=== PATIENT | female | born 1955 | race Caucasian/White ===

== ENCOUNTER 2016-09-21 17:41 | Inpatient (IN) | payer MEDICAID ==
[~2016-09-21] VITALS: Ht 165.1 cm; Wt 74.6 kg
[~2016-09-21 17:41] MED LIST: ALL300T PO; BISACODYL PO; BUME1TAB PO; CLON0.2T PO; COZAR PO; CYAN100023 PO; DIAZ10GE; DIG025T PO; DIVA250T51 PO; ESCI10TA PO; FLUV80TA PO; FOLI1TAB6 PO; GEMF600T3 PO; LEVE750T3; LEVO50CA PO; MIDO2.5T; OMEP20CA5 PO; ONDA8TAB9 PO; OXCA300T26; RIVAROXABAN PO; ROPI1TAB22 PO; SOTA80TA20 PO; SUMA50TA2 PO; TOPI100T68; ZONI100C43
[2016-09-21 19:58] LABS: Basophils # (auto) 0 uL; Basophils % (auto) 0.4 % (0.0-2.0); DEFINITIVE VIEW TRANSMISSION; Eosinophils # (auto) 0.2 uL; Eosinophils % (auto) 1.7 % (0.0-7.0); Hematocrit 36.6 % (36.0-46.0); Hemoglobin 11.9 g/dL (12.2-16.2); Lymphocytes # (auto) 2.7 uL; Mean Corpuscular Hemoglobin 24.4 pg (28.0-32.0); Mean Corpuscular Hgb Conc. 32.5 g/dL (32.0-36.0); Mean Platelet Volume 9.5 fL (7.4-10.4); Monocytes # (auto) 0.9 uL; Neutrophils # (auto) 5.8 uL; Neutrophils % (auto) 60.9 % (37.0-80.0); Platelet Count (auto) 241 10^3/uL (140-450); Red Cell Distribution Width 19.3 % (11.6-16.0); White Blood Cell 9.5 10^3/uL (4.4-10.8)
[2016-09-21 20:10] LABS: Anisocytosis Slight; Hypochromia Moderate; Ovalocytes FEW; Platelet Estimate Adequate
[2016-09-21 20:12] LABS: Albumin 3.5 g/dL (3.4-5.0); Anion Gap 13 (5-15); Blood Urea Nitrogen 22 mg/dL (7-18); Calcium 7.8 mg/dL (8.5-10.1); Carbon Dioxide 15 mmol/L (21-32); Chloride 116 mmol/L (98-107); Glucose 97 mg/dL (74-106); Magnesium 2.2 mg/dL (1.6-2.6); Sodium 144 mmol/L (136-145)
[2016-09-21 20:14] LABS: Aspartate Aminotransferase 5 U/L (15-37); BUN/Creatinine Ratio 20.4; GFR African American 67 mL/min; GFR Non-African American 55 mL/min
[2016-09-21 20:19] LABS: Alkaline Phosphatase 96 U/L (45-117); Bilirubin, Total 0.2 mg/dL (0.2-1.0)
[2016-09-21 20:24] LABS: Potassium 2.4 mmol/L (3.5-5.1)
[2016-09-21 23:39] LABS: INR 1.08 (0.9-1.15); Prothrombin Time 11.1 sec (9.37-12.3)
[2016-09-21] MEDS ORDERED: SODIUM CHLORIDE 0.9% 1,000 ML IV ONE (23:45)
[2016-09-21] MEDS ORDERED: HYDROmorphone HCL 2 MG/ML VL IV ONE (23:45)
[2016-09-21] MEDS ORDERED: ONDANSETRON HCL 4 MG/2 ML VIAL IV ONE (23:45)
[2016-09-22] MEDS ORDERED: POTASSIUM CHL 20MEQ/100ML 100 ML IV ONE (00:15)
[2016-09-22 00:44] LABS: Urine Bilirubin Negative (Negative); Urine Blood Negative /uL (Negative); Urine Color Yellow (Yellow); Urine Glucose Normal (Normal); Urine Hyaline Cast FEW /lpf (0 - 2); Urine Ketone Negative (Negative); Urine Nitrite Negative (Negative); Urine RBC 8 /hpf (0 - 4); Urine Squamous Epithelial Cell FEW /hpf (<5); Urine Urobilinogen Normal (Negative); Urine pH 6.5 (5.0-8.0)
[2016-09-22] MEDS ORDERED: HYDROmorphone HCL 2 MG/ML VL IV ONE (05:00)
[2016-09-22] MEDS ORDERED: TEMAZEPAM 15 MG CAP PO PRN (07:30)
[2016-09-22] MEDS ORDERED: HYDROcodone-ACET 5/325MG TAB PO PRN (07:30)
[2016-09-22] MEDS ORDERED: MORPHINE SULF INJ 2 MG/ML SYRINGE 1ML IV PRN (07:30)
[2016-09-22] MEDS ORDERED: ACETAMINOPHEN 500 MG TAB PO PRN (07:30)
[2016-09-22] MEDS ORDERED: NITROGLYCERIN 0.4 MG SL TAB SL PRN (07:30)
[2016-09-22] MEDS ORDERED: LORazepam 0.5 MG TAB PO PRN (07:30)
[2016-09-22] MEDS ORDERED: FLUVASTATIN SODIUM 80 MG PO SCH (07:45)
[2016-09-22] MEDS ORDERED: LOSARTAN 50 MG PO SCH (07:45)
[2016-09-22] MEDS ORDERED: LEVOTHYROXINE SODIUM 50 MCG PO SCH (07:45)
[2016-09-22] MEDS ORDERED: PATIENTS OWN MEDICATION (Folic Acid 1 MG) PO SCH ×2 (07:45)
[2016-09-22] MEDS ORDERED: DIAZEPAM 5 MG TAB PO PRN (07:45)
[2016-09-22] MEDS: SOD CHL 0.9%/ KCL 40MEQ 1,000 ML IV SCH ×2 (07:48→18:05)
[2016-09-22] MEDS: metroNIDAZOLE 500MG/100ML 100 ML IV SCH ×3 (07:48→20:25)
[2016-09-22 08:24] VITALS: BP 110/75
[2016-09-22 09:00] VITALS: BP 110/75
[2016-09-22] MEDS: MORPHINE SULF INJ 2 MG/ML SYRINGE 1ML IV PRN ×3 (09:11→20:39)
[2016-09-22] MEDS: PROMETHAZINE HCL 25 MG/ML 1ML IV PRN ×2 (09:11→13:14)
[2016-09-22] MEDS ORDERED: CYANOCOBALAMIN PO SCH (10:00)
[2016-09-22] MEDS ORDERED: PATIENTS OWN MEDICATION (Escitalopram Oxalate (Lexapro) 10 MG) PO SCH (10:00)
[2016-09-22] MEDS: ZONISAMIDE 100MG CAPSULE PO SCH ×2 (10:00→22:00)
[2016-09-22] MEDS ORDERED: CLONIDINE HYDROCHLORIDE 0.2 MG PO SCH (10:00)
[2016-09-22] MEDS ORDERED: RIVAROXABAN 20 MG PO SCH (10:00)
[2016-09-22] MEDS: ALLOPURINOL 300 MG TAB PO SCH (10:49)
[2016-09-22] MEDS: LEVOTHYROXINE SODIUM 50 MCG TAB PO SCH (10:49)
[2016-09-22] MEDS: GEMFIBROZIL 600 MG TAB PO SCH ×2 (10:50→22:10)
[2016-09-22] MEDS: CYANOCOBALAMIN 500 MCG TAB PO SCH (10:50)
[2016-09-22] MEDS: LEVETIRACETAM 500 MG TAB PO SCH ×2 (10:52→22:09)
[2016-09-22] MEDS: CITALOPRAM HYDROBR 20 MG TAB PO SCH (10:52)
[2016-09-22] MEDS: FAMOTIDINE 20 MG TAB PO SCH ×2 (10:52→22:10)
[2016-09-22] MEDS: FOLIC ACID 1 MG TAB PO SCH (10:53)
[2016-09-22] MEDS: TOPIRAMATE 100 MG TAB PO SCH ×2 (10:53→22:11)
[2016-09-22] MEDS: OXcarbazepine 300 MG TAB PO SCH ×2 (10:54→22:11)
[2016-09-22] MEDS: SOTALOL HCL 80 MG TAB PO SCH ×2 (10:56→22:00)
[2016-09-22] MEDS: DIGOXIN 0.125 MG TAB PO SCH (10:57)
[2016-09-22] MEDS: LOSARTAN POTASSIUM 50 MG TAB PO SCH (10:58)
[2016-09-22] MEDS: cloNIDine HCL 0.1 MG TAB PO SCH ×2 (11:30→22:00)
[2016-09-22 13:00] VITALS: BP 90/47
[2016-09-22] MEDS: MIDODRINE HCL 10 MG TAB PO SCH ×2 (13:20→22:11)
[2016-09-22] MEDS: ROPINIROLE 1 MG PO SCH ×2 (13:22→22:00)
[2016-09-22 17:00] VITALS: BP 100/59
[2016-09-22] MEDS: RIVAROXABAN 20 MG TAB PO SCH (18:02)
[2016-09-22 20:00] VITALS: BP 102/52
[2016-09-22 21:52] VITALS: BP 102/53
[2016-09-22] MEDS: MORPHINE SULF 30 mg ER tab PO SCH (22:10)
[2016-09-22] MEDS: PRAVASTATIN SODIUM 20 MG TAB PO SCH (22:11)
[2016-09-23] VITALS (7 sets, daily range): BP systolic 97–128; BP diastolic 50–73
[2016-09-23] MEDS: metroNIDAZOLE 500MG/100ML 100 ML IV SCH ×4 (01:29→22:05)
[2016-09-23] MEDS: SOD CHL 0.9%/ KCL 40MEQ 1,000 ML IV SCH ×2 (04:34→13:30)
[2016-09-23] MEDS: MIDODRINE HCL 10 MG TAB PO SCH ×3 (05:07→22:00)
[2016-09-23] MEDS: MORPHINE SULF INJ 2 MG/ML SYRINGE 1ML IV PRN ×3 (05:08→22:12)
[2016-09-23] MEDS: ROPINIROLE 1 MG PO SCH ×3 (05:15→22:00)
[2016-09-23 07:50] LABS: Albumin 3.2 g/dL (3.4-5.0); Potassium 3.1 mmol/L (3.5-5.1)
[2016-09-23 07:52] LABS: BUN/Creatinine Ratio 17.4; Calcium 7.9 mg/dL (8.5-10.1)
[2016-09-23 07:55] LABS: Bilirubin, Total 0.3 mg/dL (0.2-1.0); Total Protein 6.3 g/dL (6.4-8.2)
[2016-09-23] MEDS: PROMETHAZINE HCL 25 MG/ML 1ML IV PRN (09:48)
[2016-09-23] MEDS: CYANOCOBALAMIN 500 MCG TAB PO SCH (09:48)
[2016-09-23] MEDS: GEMFIBROZIL 600 MG TAB PO SCH ×2 (09:49→22:17)
[2016-09-23] MEDS: LEVETIRACETAM 500 MG TAB PO SCH ×2 (09:49→22:16)
[2016-09-23] MEDS: ALLOPURINOL 300 MG TAB PO SCH (09:49)
[2016-09-23] MEDS: DIGOXIN 0.125 MG TAB PO SCH (09:50)
[2016-09-23] MEDS: cloNIDine HCL 0.1 MG TAB PO SCH ×2 (09:50→22:00)
[2016-09-23] MEDS: LEVOTHYROXINE SODIUM 50 MCG TAB PO SCH (09:54)
[2016-09-23] MEDS: CITALOPRAM HYDROBR 20 MG TAB PO SCH (09:54)
[2016-09-23] MEDS: FOLIC ACID 1 MG TAB PO SCH (09:54)
[2016-09-23] MEDS: SOTALOL HCL 80 MG TAB PO SCH ×2 (09:55→22:18)
[2016-09-23] MEDS: FAMOTIDINE 20 MG TAB PO SCH ×2 (09:55→22:16)
[2016-09-23] MEDS: OXcarbazepine 300 MG TAB PO SCH ×2 (09:55→22:16)
[2016-09-23] MEDS: LOSARTAN POTASSIUM 50 MG TAB PO SCH (09:55)
[2016-09-23] MEDS: TOPIRAMATE 100 MG TAB PO SCH ×2 (09:55→22:17)
[2016-09-23] MEDS: MORPHINE SULF 30 mg ER tab PO SCH ×2 (09:57→22:00)
[2016-09-23] MEDS: ZONISAMIDE 100MG CAPSULE PO SCH ×2 (09:57→22:00)
[2016-09-23] MEDS ORDERED: POTASSIUM CHL 20 Meq TABLET PO ONE (11:15)
[2016-09-23] MEDS: RIVAROXABAN 20 MG TAB PO SCH (17:39)
[2016-09-23] MEDS: PRAVASTATIN SODIUM 20 MG TAB PO SCH (22:00)
[2016-09-24] MEDS: metroNIDAZOLE 500MG/100ML 100 ML IV SCH ×3 (03:03→14:17)
[2016-09-24] MEDS: MORPHINE SULF INJ 2 MG/ML SYRINGE 1ML IV PRN ×3 (03:11→14:17)
[2016-09-24 05:33] VITALS: BP 104/53
[2016-09-24] MEDS: ROPINIROLE 1 MG PO SCH ×2 (06:00→14:00)
[2016-09-24 06:25] LABS: Basophils # (auto) 0 uL; Basophils % (auto) 0.5 % (0.0-2.0); DEFINITIVE VIEW TRANSMISSION; Eosinophils # (auto) 0.3 uL; Eosinophils % (auto) 5.1 % (0.0-7.0); Hematocrit 32.4 % (36.0-46.0); Hemoglobin 10.3 g/dL (12.2-16.2); Lymphocytes # (auto) 1.4 uL; Lymphocytes % (auto) 22.5 % (10.0-50.0); Mean Corpuscular Hgb Conc. 31.9 g/dL (32.0-36.0); Mean Corpuscular Volume 75.5 fL (80.0-100.0); Mean Platelet Volume 9.6 fL (7.4-10.4); Monocytes # (auto) 0.6 uL; Monocytes % (auto) 9.3 % (0.0-12.0); Neutrophils # (auto) 3.8 uL; Neutrophils % (auto) 62.6 % (37.0-80.0); Platelet Count (auto) 180 10^3/uL (140-450); Red Cell Distribution Width 19.2 % (11.6-16.0)
[2016-09-24] MEDS: SOD CHL 0.9%/ KCL 40MEQ 1,000 ML IV SCH ×2 (06:36→09:30)
[2016-09-24] MEDS: MIDODRINE HCL 10 MG TAB PO SCH ×2 (06:38→14:17)
[2016-09-24 07:04] LABS: Anisocytosis Slight; Microcytosis Slight; Ovalocytes FEW; Platelet Estimate Adequate
[2016-09-24 07:12] LABS: BUN/Creatinine Ratio 13.8; Calcium 7.9 mg/dL (8.5-10.1); Magnesium 2.1 mg/dL (1.6-2.6); Potassium 3.3 mmol/L (3.5-5.1)
[2016-09-24 08:00] VITALS: BP 163/75
[2016-09-24 09:44] VITALS: BP 163/75
[2016-09-24] MEDS: LEVOTHYROXINE SODIUM 50 MCG TAB PO SCH (09:53)
[2016-09-24] MEDS: OXcarbazepine 300 MG TAB PO SCH (09:53)
[2016-09-24] MEDS: LEVETIRACETAM 500 MG TAB PO SCH (09:53)
[2016-09-24] MEDS: TOPIRAMATE 100 MG TAB PO SCH (09:53)
[2016-09-24] MEDS: FOLIC ACID 1 MG TAB PO SCH (09:54)
[2016-09-24] MEDS: GEMFIBROZIL 600 MG TAB PO SCH (09:54)
[2016-09-24] MEDS: FAMOTIDINE 20 MG TAB PO SCH (09:54)
[2016-09-24] MEDS: CITALOPRAM HYDROBR 20 MG TAB PO SCH (09:54)
[2016-09-24] MEDS: CYANOCOBALAMIN 500 MCG TAB PO SCH (09:54)
[2016-09-24] MEDS: SOTALOL HCL 80 MG TAB PO SCH (09:55)
[2016-09-24] MEDS: ALLOPURINOL 300 MG TAB PO SCH (09:55)
[2016-09-24] MEDS: LOSARTAN POTASSIUM 50 MG TAB PO SCH (09:55)
[2016-09-24] MEDS: MORPHINE SULF 30 mg ER tab PO SCH (09:56)
[2016-09-24] MEDS: ZONISAMIDE 100MG CAPSULE PO SCH (09:56)
[2016-09-24] MEDS: DIGOXIN 0.125 MG TAB PO SCH (09:56)
[2016-09-24] MEDS: cloNIDine HCL 0.1 MG TAB PO SCH (10:00)
[2016-09-24 12:53] VITALS: BP 98/59
[2016-09-24 16:45] VITALS: BP 137/66
[2016-09-24 17:15] VITALS: BP 106/56
[2016-09-24] MEDS: RIVAROXABAN 20 MG TAB PO SCH (18:00)
== END 2016-09-24 18:35 | disposition home health service (06) | DRG 248 ==
LOC: ER 17:44 → TELE-E-ADS 17:45 → TELE-EAST 09-22 08:18
PROVIDERS: ADMIT Internal Medicine; ATTEND Internal Medicine
DX: A04.7 Enterocolitis due to Clostridium difficile (principal); K85.90 Acute pancreatitis without necrosis or infection, unspecified; K91.2 Postsurgical malabsorption, not elsewhere classified; F11.20 Opioid dependence, uncomplicated; N39.0 Urinary tract infection, site not specified; I13.10 Hypertensive heart and chronic kidney disease without heart failure, with stage 1 through stage 4 chronic kidney disease, or unspecified chronic kidney disease; F13.20 Sedative, hypnotic or anxiolytic dependence, uncomplicated; N20.0 Calculus of kidney; I48.91 Unspecified atrial fibrillation; E86.0 Dehydration; G40.909 Epilepsy, unspecified, not intractable, without status epilepticus; F32.9 Major depressive disorder, single episode, unspecified; E03.9 Hypothyroidism, unspecified; E78.5 Hyperlipidemia, unspecified; E87.6 Hypokalemia; F41.9 Anxiety disorder, unspecified; Z96.89 Presence of other specified functional implants; G89.4 Chronic pain syndrome; N18.9 Chronic kidney disease, unspecified; F19.20 Other psychoactive substance dependence, uncomplicated; M10.9 Gout, unspecified; Z98.84 Bariatric surgery status; Z90.49 Acquired absence of other specified parts of digestive tract; Z98.890 Other specified postprocedural states; Z82.5 Family history of asthma and other chronic lower respiratory diseases; Z82.0 Family history of epilepsy and other diseases of the nervous system; Z82.3 Family history of stroke; Z80.9 Family history of malignant neoplasm, unspecified; Z88.1 Allergy status to other antibiotic agents; Z88.8 Allergy status to other drugs, medicaments and biological substances; Z86.73 Personal history of transient ischemic attack (TIA), and cerebral infarction without residual deficits; Z86.010 Personal history of colon polyps; Z86.2 Personal history of diseases of the blood and blood-forming organs and certain disorders involving the immune mechanism
CPT/HCPCS: 36415; 71010; 74176; 80048; 80053; 81001; 82150; 82270; 82378; 83690; 83735; 84484; 85025; 85610; 86141; 87045; 87081; 87493; 87899; 93005; 96361; 96365; 96374; 96375; 96376; J2405; J3480; J3490

== ENCOUNTER 2016-09-29 16:02 | Inpatient (IN) | payer MEDICAID ==
[~2016-09-29] VITALS: Ht 165.1 cm; Wt 69.8 kg
[2016-09-29 17:08] LABS: Basophils # (auto) 0 uL; Basophils % (auto) 0.6 % (0.0-2.0); DEFINITIVE VIEW TRANSMISSION; Eosinophils # (auto) 0.1 uL; Eosinophils % (auto) 2.1 % (0.0-7.0); Hematocrit 36.2 % (36.0-46.0); Hemoglobin 11.7 g/dL (12.2-16.2); Lymphocytes # (auto) 2.2 uL; Lymphocytes % (auto) 33.8 % (10.0-50.0); Mean Corpuscular Hemoglobin 24.9 pg (28.0-32.0); Mean Corpuscular Hgb Conc. 32.3 g/dL (32.0-36.0); Mean Corpuscular Volume 76.9 fL (80.0-100.0); Mean Platelet Volume 8.5 fL (7.4-10.4); Monocytes # (auto) 0.8 uL; Monocytes % (auto) 12.4 % (0.0-12.0); Neutrophils # (auto) 3.3 uL; Neutrophils % (auto) 51.1 % (37.0-80.0); Platelet Count (auto) 215 10^3/uL (140-450); White Blood Cell 6.4 10^3/uL (4.4-10.8)
[2016-09-29 17:09] LABS: Red Cell Distribution Width 20.6 % (11.6-16.0)
[2016-09-29 17:26] LABS: Platelet Estimate Adequate
[2016-09-29 17:30] LABS: Ovalocytes FEW
[2016-09-29 17:31] LABS: Anisocytosis Slight; Hypochromia Slight
[2016-09-29 17:32] LABS: Albumin 3.3 g/dL (3.4-5.0); BUN/Creatinine Ratio 13.2; Bilirubin, Total 0.3 mg/dL (0.2-1.0); Calcium 7.9 mg/dL (8.5-10.1); Total Protein 6.4 g/dL (6.4-8.2)
[2016-09-29 17:44] LABS: Potassium 2.5 mmol/L (3.5-5.1)
[2016-09-29] MEDS ORDERED: SODIUM CHLORIDE 0.9% 1,000 ML IVB ONE (17:44)
[2016-09-29 18:10] LABS: Urine Bilirubin Negative (Negative); Urine Color Yellow (Yellow); Urine Glucose Normal (Normal); Urine Ketone Negative (Negative); Urine Nitrite Negative (Negative); Urine RBC 3 /hpf (0 - 4); Urine Squamous Epithelial Cell FEW /hpf (<5); Urine Urobilinogen Normal (Negative)
[2016-09-29 18:18] LABS: Urine Blood 2+ /uL (Negative)
[2016-09-29 18:26] LABS: Magnesium 1.8 mg/dL (1.6-2.6)
[2016-09-29] MEDS ORDERED: ONDANSETRON HCL 4 MG/2 ML VIAL IV ONE (18:30)
[2016-09-29] MEDS ORDERED: LEVOFLOXACIN 500MG 100 ML IV ONE (18:45)
[2016-09-29] MEDS ORDERED: ACETAMINOPHEN 500 MG TAB PO PRN (18:45)
[2016-09-29] MEDS ORDERED: NITROGLYCERIN 0.4 MG SL TAB SL PRN (18:45)
[2016-09-29] MEDS ORDERED: POTASSIUM CHL 20 Meq TABLET PO ONE (18:45)
[2016-09-29] MEDS ORDERED: LORazepam 0.5 MG TAB PO PRN (18:45)
[2016-09-29] MEDS ORDERED: HYDROcodone-ACET 5/325MG TAB PO PRN (18:45)
[2016-09-29] MEDS ORDERED: metroNIDAZOLE 500MG/100ML 100 ML IV ONE (18:45)
[2016-09-29] MEDS: SOD CHL 0.9%/ KCL 40MEQ 1,000 ML IV SCH (18:45)
[2016-09-29] MEDS ORDERED: MORPHINE SULF INJ 2 MG/ML SYRINGE 1ML IV PRN (18:45)
[2016-09-29] MEDS ORDERED: TEMAZEPAM 15 MG CAP PO PRN (18:45)
[2016-09-29 18:46] LABS: INR 1.14 (0.9-1.15); Partial Thromboplastin Time 25.8 sec (22.64-33.71); Prothrombin Time 11.7 sec (9.37-12.3)
[2016-09-29] MEDS: ENOXAPARIN SOD 40 MG/0.4 ML SYRINGE SC SCH (20:16)
[2016-09-29] MEDS ORDERED: RIVAROXABAN 20 MG TAB PO ONE (20:30)
[2016-09-29] MEDS ORDERED: OXYCODONE W/ ACETAMINOPHEN 5/325MG TABLET PO PRN (20:30)
[2016-09-29] MEDS: POTASSIUM CHL 20MEQ/100ML 100 ML IV SCH (20:39)
[2016-09-29] MEDS: MORPHINE SULF INJ 2 MG/ML SYRINGE 1ML IV PRN (20:42)
[2016-09-29] MEDS: PROMETHAZINE HCL 25 MG/ML 1ML IV PRN (20:42)
[2016-09-29 21:20] VITALS: BP 119/73
[2016-09-29 21:52] VITALS: BP 119/73
[2016-09-29] MEDS ORDERED: metroNIDAZOLE 500 MG TAB PO SCH (22:00)
[2016-09-29] MEDS: ZONISAMIDE 100MG CAPSULE PO SCH (22:00)
[2016-09-29] MEDS: SOTALOL HCL 80 MG TAB PO SCH (22:00)
[2016-09-29] MEDS: ROPINIROLE HYDROCHLORIDE 1 MG PO SCH (22:00)
[2016-09-29] MEDS ORDERED: SUMAtriptan SUCCINATE 25 MG TAB PO PRN (22:00)
[2016-09-29] MEDS: FAMOTIDINE 20 MG TAB PO SCH (23:15)
[2016-09-29] MEDS: OXcarbazepine 300 MG TAB PO SCH (23:16)
[2016-09-29] MEDS: LEVETIRACETAM 500 MG TAB PO SCH (23:16)
[2016-09-29] MEDS: NITROFURANTOIN (MONO) 100 mg CAP PO SCH (23:18)
[2016-09-29] MEDS: PRAVASTATIN SODIUM 20 MG TAB PO SCH (23:19)
[2016-09-29] MEDS: MORPHINE SULF 30 mg ER tab PO SCH (23:19)
[2016-09-29] MEDS: GEMFIBROZIL 600 MG TAB PO SCH (23:20)
[2016-09-30] MEDS: TOPIRAMATE 100 MG TAB PO SCH ×3 (00:02→22:00)
[2016-09-30] MEDS: metroNIDAZOLE 500MG/100ML 100 ML IV ONE ×2 (00:15→00:33)
[2016-09-30] MEDS: POTASSIUM CHL 20MEQ/100ML 100 ML IV SCH (00:32)
[2016-09-30] MEDS: MORPHINE SULF INJ 2 MG/ML SYRINGE 1ML IV PRN (00:34)
[2016-09-30 02:02] VITALS: BP 119/73
[2016-09-30] MEDS: SOD CHL 0.9%/ KCL 40MEQ 1,000 ML IV SCH (03:05)
[2016-09-30 05:04] LABS: Basophils # (auto) 0 uL; Basophils % (auto) 0.7 % (0.0-2.0); DEFINITIVE VIEW TRANSMISSION; Eosinophils # (auto) 0.2 uL; Eosinophils % (auto) 2.5 % (0.0-7.0); Hematocrit 32.7 % (36.0-46.0); Hemoglobin 10.3 g/dL (12.2-16.2); Lymphocytes # (auto) 2.4 uL; Mean Corpuscular Hemoglobin 24.3 pg (28.0-32.0); Mean Corpuscular Hgb Conc. 31.6 g/dL (32.0-36.0); Mean Corpuscular Volume 76.7 fL (80.0-100.0); Mean Platelet Volume 8.9 fL (7.4-10.4); Monocytes # (auto) 0.9 uL; Monocytes % (auto) 13.4 % (0.0-12.0); Neutrophils # (auto) 3.4 uL; Neutrophils % (auto) 48.4 % (37.0-80.0); Platelet Count (auto) 207 10^3/uL (140-450)
[2016-09-30 05:07] LABS: Red Cell Distribution Width 20.5 % (11.6-16.0)
[2016-09-30 05:15] VITALS: BP 102/71
[2016-09-30] MEDS: ROPINIROLE HYDROCHLORIDE 1 MG PO SCH ×3 (06:00→22:00)
[2016-09-30] MEDS: metroNIDAZOLE 500MG/100ML 100 ML IV SCH ×3 (06:27→21:53)
[2016-09-30] MEDS: LEVOTHYROXINE SODIUM 50 MCG TAB PO SCH (07:57)
[2016-09-30 08:07] LABS: BUN/Creatinine Ratio 11.1
[2016-09-30 08:08] LABS: Albumin 2.4 g/dL (3.4-5.0); Bilirubin, Total 0.2 mg/dL (0.2-1.0); Total Protein 4.7 g/dL (6.4-8.2)
[2016-09-30 08:09] LABS: Calcium 5.2 mg/dL (8.5-10.1); Potassium 2.3 mmol/L (3.5-5.1)
[2016-09-30] MEDS ORDERED: NALOXONE HCL 0.4 MG/ML VIAL IV ONE (09:00)
[2016-09-30 09:02] VITALS: BP 93/56
[2016-09-30] MEDS: SOD CHL 0.45% WITH 20MEQ KCL 1,000 ML IV SCH ×2 (09:26→17:59)
[2016-09-30] MEDS: FOLIC ACID 1 MG TAB PO SCH (09:27)
[2016-09-30] MEDS: CITALOPRAM HYDROBR 20 MG TAB PO SCH (09:29)
[2016-09-30] MEDS: SOTALOL HCL 80 MG TAB PO SCH ×2 (09:29→21:59)
[2016-09-30] MEDS: LEVETIRACETAM 500 MG TAB PO SCH ×2 (09:30→21:53)
[2016-09-30] MEDS: BISACODYL 5 MG EC TAB PO SCH (09:30)
[2016-09-30] MEDS: DIGOXIN 0.25 MG TAB PO SCH (09:31)
[2016-09-30] MEDS: NITROFURANTOIN (MONO) 100 mg CAP PO SCH ×2 (09:31→21:54)
[2016-09-30] MEDS: FAMOTIDINE 20 MG TAB PO SCH ×2 (09:31→21:54)
[2016-09-30] MEDS: GEMFIBROZIL 600 MG TAB PO SCH ×2 (09:31→21:55)
[2016-09-30] MEDS: PANTOPRAZOLE 40 MG TAB PO SCH (09:32)
[2016-09-30] MEDS: OXcarbazepine 300 MG TAB PO SCH ×2 (09:32→21:54)
[2016-09-30] MEDS: ALLOPURINOL 300 MG TAB PO SCH (09:32)
[2016-09-30] MEDS: ENOXAPARIN SOD 40 MG/0.4 ML SYRINGE SC SCH (09:33)
[2016-09-30] MEDS: MORPHINE SULF 30 mg ER tab PO SCH (09:34)
[2016-09-30] MEDS ORDERED: POTASSIUM CHLORIDE 40 MEQ, LIDOCAINE 1% (LOCAL ANESTH.) 4 ML in SODIUM CHL 0.9% 250 ML IV ONE (09:45)
[2016-09-30] MEDS: LOSARTAN POTASSIUM 50 MG TAB PO SCH (10:00)
[2016-09-30] MEDS: CYANOCOBALAMIN PO SCH (10:00)
[2016-09-30] MEDS: ZONISAMIDE 100MG CAPSULE PO SCH ×2 (10:00→22:00)
[2016-09-30 11:06] LABS: Anisocytosis Slight; Hypochromia Slight; Ovalocytes FEW; Platelet Estimate Adequate
[2016-09-30 14:41] VITALS: BP 100/60
[2016-09-30] MEDS: RIVAROXABAN 20 MG TAB PO SCH (17:59)
[2016-09-30 18:18] LABS: BUN/Creatinine Ratio 9.8; Calcium 7.3 mg/dL (8.5-10.1); Potassium 3.1 mmol/L (3.5-5.1)
[2016-09-30 20:00] VITALS: BP 149/74
[2016-09-30 22:00] VITALS: BP 149/74
[2016-09-30] MEDS: PRAVASTATIN SODIUM 20 MG TAB PO SCH (22:00)
[2016-09-30] MEDS ORDERED: MORPHINE SULF 30 mg ER tab PO SCH (22:00)
[2016-10-01] MEDS: PROMETHAZINE HCL 25 MG/ML 1ML IV PRN ×2 (02:00→16:46)
[2016-10-01] MEDS: SOD CHL 0.45% WITH 20MEQ KCL 1,000 ML IV SCH ×3 (02:01→19:24)
[2016-10-01 05:00] VITALS: BP 137/73
[2016-10-01 05:05] LABS: Basophils # (auto) 0 uL; Basophils % (auto) 0.7 % (0.0-2.0); DEFINITIVE VIEW TRANSMISSION; Eosinophils # (auto) 0.1 uL; Hematocrit 33.7 % (36.0-46.0); Hemoglobin 10.7 g/dL (12.2-16.2); Lymphocytes # (auto) 1.4 uL; Lymphocytes % (auto) 22.2 % (10.0-50.0); Mean Corpuscular Hemoglobin 24.4 pg (28.0-32.0); Mean Corpuscular Hgb Conc. 31.9 g/dL (32.0-36.0); Mean Corpuscular Volume 76.4 fL (80.0-100.0); Mean Platelet Volume 8.7 fL (7.4-10.4); Monocytes # (auto) 0.7 uL; Monocytes % (auto) 11.2 % (0.0-12.0); Neutrophils # (auto) 4.1 uL; Neutrophils % (auto) 63.9 % (37.0-80.0); Platelet Count (auto) 183 10^3/uL (140-450); White Blood Cell 6.5 10^3/uL (4.4-10.8)
[2016-10-01 05:14] LABS: Red Cell Distribution Width 20.8 % (11.6-16.0)
[2016-10-01 05:19] LABS: BUN/Creatinine Ratio 6.9; Calcium 7.6 mg/dL (8.5-10.1); Magnesium 1.6 mg/dL (1.6-2.6); Potassium 3.4 mmol/L (3.5-5.1)
[2016-10-01] MEDS: ROPINIROLE HYDROCHLORIDE 1 MG PO SCH ×3 (06:00→22:00)
[2016-10-01] MEDS: metroNIDAZOLE 500MG/100ML 100 ML IV SCH (06:13)
[2016-10-01 06:36] LABS: Hypochromia Slight; Microcytosis Slight; Ovalocytes FEW; Platelet Estimate Adequate
[2016-10-01 06:37] LABS: Anisocytosis Slight
[2016-10-01] MEDS: LEVOTHYROXINE SODIUM 50 MCG TAB PO SCH (07:03)
[2016-10-01 09:00] VITALS: BP 132/82
[2016-10-01] MEDS ORDERED: POTASSIUM CHL 20 Meq TABLET PO ONE (09:45)
[2016-10-01] MEDS: ZONISAMIDE 100MG CAPSULE PO SCH ×2 (10:00→22:00)
[2016-10-01] MEDS: BISACODYL 5 MG EC TAB PO SCH (10:00)
[2016-10-01] MEDS: CYANOCOBALAMIN PO SCH (10:00)
[2016-10-01] MEDS: MAGNESIUM SULFATE 1GM/100ML 100 ML IV SCH ×3 (10:41→15:44)
[2016-10-01] MEDS: FOLIC ACID 1 MG TAB PO SCH (10:42)
[2016-10-01] MEDS: VANCOMYCIN HCL 125MG/5ML ORAL SOL PO SCH ×4 (10:43→21:54)
[2016-10-01] MEDS: SOTALOL HCL 80 MG TAB PO SCH ×2 (10:44→21:46)
[2016-10-01] MEDS: CITALOPRAM HYDROBR 20 MG TAB PO SCH (10:45)
[2016-10-01] MEDS: LOSARTAN POTASSIUM 50 MG TAB PO SCH (10:45)
[2016-10-01] MEDS: GEMFIBROZIL 600 MG TAB PO SCH ×2 (10:46→21:46)
[2016-10-01] MEDS: LEVETIRACETAM 500 MG TAB PO SCH ×2 (10:46→21:45)
[2016-10-01] MEDS: DIGOXIN 0.25 MG TAB PO SCH (10:46)
[2016-10-01] MEDS: TOPIRAMATE 100 MG TAB PO SCH ×2 (10:47→21:45)
[2016-10-01] MEDS: NITROFURANTOIN (MONO) 100 mg CAP PO SCH ×2 (10:47→21:45)
[2016-10-01] MEDS: FAMOTIDINE 20 MG TAB PO SCH ×2 (10:47→21:45)
[2016-10-01] MEDS: PANTOPRAZOLE 40 MG TAB PO SCH (10:47)
[2016-10-01] MEDS: OXcarbazepine 300 MG TAB PO SCH ×2 (10:48→21:46)
[2016-10-01] MEDS: ALLOPURINOL 300 MG TAB PO SCH (10:48)
[2016-10-01] MEDS: ENOXAPARIN SOD 40 MG/0.4 ML SYRINGE SC SCH (10:48)
[2016-10-01 12:41] VITALS: BP 126/73
[2016-10-01] MEDS ORDERED: MAGNESIUM SULFATE 1GM/100ML 200 ML IV ONE (15:11)
[2016-10-01] MEDS ORDERED: ONDANSETRON HCL 4 MG/2 ML VIAL IV PRN (15:45)
[2016-10-01 16:40] VITALS: BP 130/77
[2016-10-01] MEDS: OXYCODONE W/ ACETAMINOPHEN 5/325MG TABLET PO PRN ×2 (16:46→22:06)
[2016-10-01] MEDS: RIVAROXABAN 20 MG TAB PO SCH (17:28)
[2016-10-01 20:00] VITALS: BP 116/72
[2016-10-01] MEDS: PRAVASTATIN SODIUM 20 MG TAB PO SCH (21:45)
[2016-10-01 22:00] VITALS: BP 116/72
[2016-10-02] MEDS: SOD CHL 0.45% WITH 20MEQ KCL 1,000 ML IV SCH ×2 (01:08→11:01)
[2016-10-02 05:00] VITALS: BP 125/69
[2016-10-02] MEDS: ROPINIROLE HYDROCHLORIDE 1 MG PO SCH ×3 (06:00→22:00)
[2016-10-02] MEDS: VANCOMYCIN HCL 125MG/5ML ORAL SOL PO SCH ×4 (06:04→23:02)
[2016-10-02 06:32] LABS: Basophils # (auto) 0 uL; Basophils % (auto) 0.8 % (0.0-2.0); DEFINITIVE VIEW TRANSMISSION; Eosinophils # (auto) 0.2 uL; Eosinophils % (auto) 3.8 % (0.0-7.0); Hematocrit 32.5 % (36.0-46.0); Hemoglobin 10.5 g/dL (12.2-16.2); Lymphocytes # (auto) 1.4 uL; Lymphocytes % (auto) 30.3 % (10.0-50.0); Mean Corpuscular Hemoglobin 24.2 pg (28.0-32.0); Mean Corpuscular Hgb Conc. 32.3 g/dL (32.0-36.0); Mean Platelet Volume 9.3 fL (7.4-10.4); Monocytes # (auto) 0.6 uL; Monocytes % (auto) 12.1 % (0.0-12.0); Neutrophils # (auto) 2.5 uL; Platelet Count (auto) 176 10^3/uL (140-450); White Blood Cell 4.7 10^3/uL (4.4-10.8)
[2016-10-02 06:44] LABS: BUN/Creatinine Ratio 4.9; Calcium 7.8 mg/dL (8.5-10.1); Magnesium 2.5 mg/dL (1.6-2.6)
[2016-10-02 06:48] LABS: Potassium 2.8 mmol/L (3.5-5.1)
[2016-10-02] MEDS: LEVOTHYROXINE SODIUM 50 MCG TAB PO SCH (06:52)
[2016-10-02] MEDS ORDERED: POTASSIUM CHL 20 Meq TABLET PO ONE (07:00)
[2016-10-02 07:03] LABS: Platelet Estimate Adequate
[2016-10-02 07:04] LABS: Anisocytosis Slight; Microcytosis Slight
[2016-10-02 08:25] VITALS: BP 119/73
[2016-10-02] MEDS: BISACODYL 5 MG EC TAB PO SCH (10:00)
[2016-10-02] MEDS: CYANOCOBALAMIN PO SCH (10:00)
[2016-10-02] MEDS: ZONISAMIDE 100MG CAPSULE PO SCH ×2 (10:00→22:00)
[2016-10-02] MEDS: PROMETHAZINE HCL 25 MG/ML 1ML IV PRN (10:18)
[2016-10-02] MEDS: OXYCODONE W/ ACETAMINOPHEN 5/325MG TABLET PO PRN (10:18)
[2016-10-02] MEDS: FOLIC ACID 1 MG TAB PO SCH (10:20)
[2016-10-02] MEDS: SOTALOL HCL 80 MG TAB PO SCH ×2 (10:21→23:07)
[2016-10-02] MEDS: CITALOPRAM HYDROBR 20 MG TAB PO SCH (10:21)
[2016-10-02] MEDS: LEVETIRACETAM 500 MG TAB PO SCH ×2 (10:22→22:57)
[2016-10-02] MEDS: LOSARTAN POTASSIUM 50 MG TAB PO SCH (10:22)
[2016-10-02] MEDS: NITROFURANTOIN (MONO) 100 mg CAP PO SCH ×2 (10:23→22:58)
[2016-10-02] MEDS: DIGOXIN 0.25 MG TAB PO SCH (10:23)
[2016-10-02] MEDS: GEMFIBROZIL 600 MG TAB PO SCH ×2 (10:23→22:58)
[2016-10-02] MEDS: FAMOTIDINE 20 MG TAB PO SCH ×2 (10:23→23:00)
[2016-10-02] MEDS: OXcarbazepine 300 MG TAB PO SCH ×2 (10:24→23:01)
[2016-10-02] MEDS: TOPIRAMATE 100 MG TAB PO SCH ×2 (10:24→23:00)
[2016-10-02] MEDS: ENOXAPARIN SOD 40 MG/0.4 ML SYRINGE SC SCH (10:24)
[2016-10-02] MEDS: PANTOPRAZOLE 40 MG TAB PO SCH (10:24)
[2016-10-02] MEDS: ALLOPURINOL 300 MG TAB PO SCH (10:24)
[2016-10-02 11:53] VITALS: BP 121/65
[2016-10-02] MEDS ORDERED: POTASSIUM CHL 10% (20 MEQ/15ML) ORAL SOLN PO ONE (13:15)
[2016-10-02] MEDS: POTASSIUM CHL 20MEQ/100ML 100 ML IV SCH ×2 (13:21→18:08)
[2016-10-02] MEDS ORDERED: DIPHENOXYLATE W/ATROPINE 2.5 MG TAB PO PRN (15:30)
[2016-10-02 16:43] VITALS: BP 131/71
[2016-10-02] MEDS: RIVAROXABAN 20 MG TAB PO SCH (18:09)
[2016-10-02 18:32] LABS: BUN/Creatinine Ratio 2.5; Calcium 7.9 mg/dL (8.5-10.1)
[2016-10-02 20:00] VITALS: BP 125/73
[2016-10-02] MEDS: MORPHINE SULF INJ 2 MG/ML SYRINGE 1ML IV PRN (21:35)
[2016-10-02] MEDS: ONDANSETRON HCL 4 MG/2 ML VIAL IV PRN (21:42)
[2016-10-02 22:00] VITALS: BP 125/73
[2016-10-02] MEDS: PRAVASTATIN SODIUM 20 MG TAB PO SCH (22:59)
[2016-10-02] MEDS ORDERED: CHOLESTYRAMINE 4 GM POWDER GT SCH (23:00)
[2016-10-03] MEDS: MORPHINE SULF INJ 2 MG/ML SYRINGE 1ML IV PRN ×4 (03:22→23:12)
[2016-10-03] MEDS: ONDANSETRON HCL 4 MG/2 ML VIAL IV PRN ×3 (03:23→17:31)
[2016-10-03 05:00] VITALS: BP 117/66
[2016-10-03] MEDS: ROPINIROLE HYDROCHLORIDE 1 MG PO SCH ×3 (05:39→22:00)
[2016-10-03] MEDS: VANCOMYCIN HCL 125MG/5ML ORAL SOL PO SCH ×4 (05:43→23:05)
[2016-10-03] MEDS: LEVOTHYROXINE SODIUM 50 MCG TAB PO SCH (06:11)
[2016-10-03 06:37] LABS: Basophils # (auto) 0 uL; Basophils % (auto) 0.6 % (0.0-2.0); DEFINITIVE VIEW TRANSMISSION; Eosinophils # (auto) 0.1 uL; Eosinophils % (auto) 3.3 % (0.0-7.0); Hematocrit 30.2 % (36.0-46.0); Hemoglobin 9.9 g/dL (12.2-16.2); Lymphocytes # (auto) 1.7 uL; Lymphocytes % (auto) 40.2 % (10.0-50.0); Mean Corpuscular Hemoglobin 24.5 pg (28.0-32.0); Mean Corpuscular Hgb Conc. 32.6 g/dL (32.0-36.0); Mean Corpuscular Volume 75.2 fL (80.0-100.0); Mean Platelet Volume 9.4 fL (7.4-10.4); Monocytes # (auto) 0.5 uL; Monocytes % (auto) 11.7 % (0.0-12.0); Neutrophils # (auto) 1.9 uL; Neutrophils % (auto) 44.2 % (37.0-80.0); Platelet Count (auto) 159 10^3/uL (140-450); White Blood Cell 4.3 10^3/uL (4.4-10.8)
[2016-10-03 07:04] LABS: BUN/Creatinine Ratio 6.5; Calcium 7.3 mg/dL (8.5-10.1); Magnesium 2.1 mg/dL (1.6-2.6); Potassium 3.5 mmol/L (3.5-5.1)
[2016-10-03 07:14] LABS: Burr Cells FEW; Ovalocytes FEW; Platelet Estimate Adequate
[2016-10-03 07:16] LABS: Anisocytosis Moderate; Hypochromia Moderate
[2016-10-03 08:00] VITALS: BP 116/66
[2016-10-03 09:00] VITALS: BP 116/66
[2016-10-03] MEDS: TOPIRAMATE 100 MG TAB PO SCH ×2 (09:58→23:03)
[2016-10-03] MEDS: NITROFURANTOIN (MONO) 100 mg CAP PO SCH ×2 (09:58→23:04)
[2016-10-03] MEDS: GEMFIBROZIL 600 MG TAB PO SCH ×2 (09:59→23:02)
[2016-10-03] MEDS: LOSARTAN POTASSIUM 50 MG TAB PO SCH (10:00)
[2016-10-03] MEDS: ZONISAMIDE 100MG CAPSULE PO SCH ×2 (10:00→22:00)
[2016-10-03] MEDS: SOTALOL HCL 80 MG TAB PO SCH ×2 (10:00→23:01)
[2016-10-03] MEDS: CYANOCOBALAMIN PO SCH (10:00)
[2016-10-03] MEDS: BISACODYL 5 MG EC TAB PO SCH (10:00)
[2016-10-03] MEDS: FOLIC ACID 1 MG TAB PO SCH (10:01)
[2016-10-03] MEDS: CITALOPRAM HYDROBR 20 MG TAB PO SCH (10:02)
[2016-10-03] MEDS: PANTOPRAZOLE 40 MG TAB PO SCH (10:02)
[2016-10-03] MEDS: ALLOPURINOL 300 MG TAB PO SCH (10:03)
[2016-10-03] MEDS: OXcarbazepine 300 MG TAB PO SCH ×2 (10:03→23:02)
[2016-10-03] MEDS: DIGOXIN 0.25 MG TAB PO SCH (10:07)
[2016-10-03] MEDS: LEVETIRACETAM 500 MG TAB PO SCH ×2 (10:07→23:12)
[2016-10-03] MEDS: ENOXAPARIN SOD 40 MG/0.4 ML SYRINGE SC SCH (10:09)
[2016-10-03] MEDS ORDERED: POTASSIUM CHL 20 Meq TABLET PO ONE (10:45)
[2016-10-03] MEDS ORDERED: D5W 5% 1,000 ML IV SCH (10:45)
[2016-10-03] MEDS: CHOLESTYRAMINE 4 GM POWDER GT SCH ×2 (14:35→23:13)
[2016-10-03 17:00] VITALS: BP 126/69
[2016-10-03] MEDS: RIVAROXABAN 20 MG TAB PO SCH (17:31)
[2016-10-03 20:00] VITALS: BP 138/73
[2016-10-03 21:38] VITALS: BP 138/73
[2016-10-03] MEDS: PROMETHAZINE HCL 25 MG/ML 1ML IV PRN (22:50)
[2016-10-03] MEDS: PRAVASTATIN SODIUM 20 MG TAB PO SCH (23:03)
[2016-10-04] MEDS: ONDANSETRON HCL 4 MG/2 ML VIAL IV PRN ×2 (00:38→11:14)
[2016-10-04] MEDS: MORPHINE SULF INJ 2 MG/ML SYRINGE 1ML IV PRN ×2 (04:45→11:15)
[2016-10-04] MEDS: PROMETHAZINE HCL 25 MG/ML 1ML IV PRN (05:20)
[2016-10-04] MEDS: ROPINIROLE HYDROCHLORIDE 1 MG PO SCH ×2 (05:23→13:26)
[2016-10-04] MEDS: VANCOMYCIN HCL 125MG/5ML ORAL SOL PO SCH ×2 (05:56→11:23)
[2016-10-04 05:57] VITALS: BP 160/96
[2016-10-04] MEDS: LEVOTHYROXINE SODIUM 50 MCG TAB PO SCH (06:06)
[2016-10-04 09:00] VITALS: BP 149/79
[2016-10-04] MEDS: BISACODYL 5 MG EC TAB PO SCH (10:00)
[2016-10-04] MEDS: ZONISAMIDE 100MG CAPSULE PO SCH (10:00)
[2016-10-04] MEDS: CYANOCOBALAMIN PO SCH (10:00)
[2016-10-04] MEDS: ENOXAPARIN SOD 40 MG/0.4 ML SYRINGE SC SCH (10:11)
[2016-10-04] MEDS: LOSARTAN POTASSIUM 50 MG TAB PO SCH (10:11)
[2016-10-04] MEDS: DIGOXIN 0.25 MG TAB PO SCH (10:11)
[2016-10-04] MEDS: CITALOPRAM HYDROBR 20 MG TAB PO SCH (10:11)
[2016-10-04] MEDS: FOLIC ACID 1 MG TAB PO SCH (10:12)
[2016-10-04] MEDS: LEVETIRACETAM 500 MG TAB PO SCH (10:12)
[2016-10-04] MEDS: SOTALOL HCL 80 MG TAB PO SCH (10:12)
[2016-10-04] MEDS: ALLOPURINOL 300 MG TAB PO SCH (10:13)
[2016-10-04] MEDS: NITROFURANTOIN (MONO) 100 mg CAP PO SCH (10:13)
[2016-10-04] MEDS: TOPIRAMATE 100 MG TAB PO SCH (10:13)
[2016-10-04] MEDS: OXcarbazepine 300 MG TAB PO SCH (10:13)
[2016-10-04] MEDS: GEMFIBROZIL 600 MG TAB PO SCH (10:13)
[2016-10-04] MEDS: PANTOPRAZOLE 40 MG TAB PO SCH (10:14)
[2016-10-04 11:29] LABS: Basophils # (auto) 0 uL; Basophils % (auto) 0.3 % (0.0-2.0); DEFINITIVE VIEW TRANSMISSION; Eosinophils # (auto) 0.1 uL; Eosinophils % (auto) 1.9 % (0.0-7.0); Hematocrit 33.8 % (36.0-46.0); Hemoglobin 10.7 g/dL (12.2-16.2); Lymphocytes % (auto) 18.9 % (10.0-50.0); Mean Corpuscular Hgb Conc. 31.7 g/dL (32.0-36.0); Mean Corpuscular Volume 75.6 fL (80.0-100.0); Mean Platelet Volume 8.7 fL (7.4-10.4); Monocytes # (auto) 0.5 uL; Monocytes % (auto) 9.5 % (0.0-12.0); Neutrophils # (auto) 3.8 uL; Neutrophils % (auto) 69.4 % (37.0-80.0); Platelet Count (auto) 189 10^3/uL (140-450); White Blood Cell 5.5 10^3/uL (4.4-10.8)
[2016-10-04 11:42] LABS: Red Cell Distribution Width 21.8 % (11.6-16.0)
[2016-10-04 11:43] LABS: BUN/Creatinine Ratio 4.8; Calcium 8.1 mg/dL (8.5-10.1); Potassium 4.1 mmol/L (3.5-5.1)
[2016-10-04] MEDS ORDERED: NITR-48 PO (12:09)
[2016-10-04] MEDS ORDERED: CHL4PW GT (12:09)
[2016-10-04] MEDS ORDERED: NOR5T PO (12:09)
[2016-10-04] MEDS ORDERED: VANC125PO PO (12:09)
[2016-10-04 13:30] VITALS: BP 150/94
[2016-10-04 14:22] LABS: Anisocytosis Moderate; Burr Cells FEW; Hypochromia Moderate; Ovalocytes FEW
[2016-10-04 14:23] LABS: Platelet Clumps FEW; Platelet Estimate Adequate
[2016-10-04] MEDS: CHOLESTYRAMINE 4 GM POWDER GT SCH (15:27)
== END 2016-10-04 17:00 | disposition home health service (06) | DRG 248 ==
LOC: ER 16:06 → TELE 16:07 → TELE-WESTW 21:15
PROVIDERS: ADMIT Internal Medicine; ATTEND Internal Medicine
DX: A04.7 Enterocolitis due to Clostridium difficile (principal); E87.0 Hyperosmolality and hypernatremia; F11.20 Opioid dependence, uncomplicated; N39.0 Urinary tract infection, site not specified; I13.10 Hypertensive heart and chronic kidney disease without heart failure, with stage 1 through stage 4 chronic kidney disease, or unspecified chronic kidney disease; I48.0 Paroxysmal atrial fibrillation; G40.909 Epilepsy, unspecified, not intractable, without status epilepticus; E83.42 Hypomagnesemia; E03.9 Hypothyroidism, unspecified; E87.6 Hypokalemia; G89.4 Chronic pain syndrome; M10.9 Gout, unspecified; M54.5 Low back pain; E78.5 Hyperlipidemia, unspecified; D64.9 Anemia, unspecified; G43.909 Migraine, unspecified, not intractable, without status migrainosus; N18.9 Chronic kidney disease, unspecified; F32.9 Major depressive disorder, single episode, unspecified; F41.9 Anxiety disorder, unspecified; R09.02 Hypoxemia; Z87.440 Personal history of urinary (tract) infections; Z88.8 Allergy status to other drugs, medicaments and biological substances; Z87.19 Personal history of other diseases of the digestive system; Z82.49 Family history of ischemic heart disease and other diseases of the circulatory system; Z98.84 Bariatric surgery status; Z90.710 Acquired absence of both cervix and uterus; Z90.49 Acquired absence of other specified parts of digestive tract; Z98.890 Other specified postprocedural states; Z95.0 Presence of cardiac pacemaker; Z82.5 Family history of asthma and other chronic lower respiratory diseases; Z82.0 Family history of epilepsy and other diseases of the nervous system; Z82.3 Family history of stroke; Z84.89 Family history of other specified conditions; Z80.9 Family history of malignant neoplasm, unspecified; Z86.010 Personal history of colon polyps; Z86.14 Personal history of Methicillin resistant Staphylococcus aureus infection; Z79.891 Long term (current) use of opiate analgesic
CPT/HCPCS: 36415; 71010; 74022; 80048; 80053; 81001; 82150; 83690; 83735; 84484; 85025; 85610; 85730; 87081; 87086; 87493; 93005; 94761; 96361; 96365; 96375; J1956; J2001; J2405; J3480; J3490

== ENCOUNTER 2016-11-29 11:10 | Inpatient (IN) | payer MEDICAID ==
[~2016-11-29] VITALS: Ht 165.1 cm; Wt 79.7 kg
[~2016-11-29 11:10] MED LIST changes: -BISACODYL PO; +CHL4PW GT; +NITR-48 PO; +NOR5T PO; +VANC125PO PO
[2016-11-29 12:28] LABS: Basophils # (auto) 0 uL; DEFINITIVE VIEW TRANSMISSION; Eosinophils # (auto) 0.2 uL; Lymphocytes # (auto) 1.3 uL; Platelet Count (auto) 239 10^3/uL (140-450)
[2016-11-29 12:35] LABS: Basophils % (auto) 0.5 % (0.0-2.0); Eosinophils % (auto) 3.2 % (0.0-7.0); Hematocrit 33.8 % (36.0-46.0); Lymphocytes % (auto) 22.2 % (10.0-50.0); Mean Corpuscular Hemoglobin 25.8 pg (28.0-32.0); Mean Corpuscular Hgb Conc. 32.5 g/dL (32.0-36.0); Mean Corpuscular Volume 79.4 fL (80.0-100.0); Mean Platelet Volume 8.4 fL (7.4-10.4); Monocytes # (auto) 0.4 uL; Monocytes % (auto) 7.4 % (0.0-12.0); Neutrophils # (auto) 3.9 uL; Neutrophils % (auto) 66.7 % (37.0-80.0); White Blood Cell 5.9 10^3/uL (4.4-10.8)
[2016-11-29 12:41] LABS: INR 0.99 (0.9-1.15); Partial Thromboplastin Time 27.5 sec (22.64-33.71); Prothrombin Time 10.7 sec (9.37-12.3)
[2016-11-29 12:43] LABS: Albumin 3.3 g/dL (3.4-5.0); Anion Gap 10 (5-15); BUN/Creatinine Ratio 16.1; Blood Urea Nitrogen 15 mg/dL (7-18); Calcium 8.4 mg/dL (8.5-10.1); Carbon Dioxide 22 mmol/L (21-32); Chloride 114 mmol/L (98-107); GFR African American 79 mL/min; GFR Non-African American 65 mL/min; Glucose 106 mg/dL (74-106); Magnesium 2.1 mg/dL (1.6-2.6); Sodium 146 mmol/L (136-145)
[2016-11-29 12:48] LABS: Alkaline Phosphatase 108 U/L (45-117); Aspartate Aminotransferase 7 U/L (15-37); Bilirubin, Total 0.2 mg/dL (0.2-1.0); Total Protein 6.8 g/dL (6.4-8.2)
[2016-11-29 12:57] LABS: Potassium 2.9 mmol/L (3.5-5.1)
[2016-11-29] MEDS ORDERED: SODIUM CHLORIDE 0.9% 1,000 ML IVB ONE (13:22)
[2016-11-29 14:54] LABS: Anisocytosis Slight; Hypochromia Slight; Microcytosis Slight; Ovalocytes FEW; Platelet Estimate Adequate; Stomatocytes Few
[2016-11-29] MEDS ORDERED: ACETAMINOPHEN 500 MG TAB PO PRN (15:15)
[2016-11-29] MEDS ORDERED: MORPHINE SULF INJ 2 MG/ML SYRINGE 1ML IV PRN (15:15)
[2016-11-29] MEDS ORDERED: POTASSIUM CHL 20 Meq TABLET PO ONE (15:15)
[2016-11-29] MEDS ORDERED: LORazepam 0.5 MG TAB PO PRN (15:15)
[2016-11-29] MEDS ORDERED: NITROGLYCERIN 0.4 MG SL TAB SL PRN (15:15)
[2016-11-29] MEDS ORDERED: TEMAZEPAM 15 MG CAP PO PRN (15:15)
[2016-11-29] MEDS: SOD CHL 0.9%/ KCL 40MEQ 1,000 ML IV SCH (16:02)
[2016-11-29] MEDS: POTASSIUM CHL 20MEQ/100ML 100 ML IV SCH ×2 (16:02→17:52)
[2016-11-29 16:06] LABS: Temperature: 22.9 C (20.0-25.0)
[2016-11-29] MEDS: MORPHINE SULF INJ 2 MG/ML SYRINGE 1ML IV PRN ×2 (16:26→21:15)
[2016-11-29] MEDS: PROMETHAZINE HCL 25 MG/ML 1ML IV PRN ×2 (16:27→21:15)
[2016-11-29] MEDS ORDERED: CYANOCOBALAMIN 500 MCG TAB PO ONE (16:45)
[2016-11-29] MEDS ORDERED: FOLIC ACID 1 MG TAB PO ONE ×2 (16:45→18:15)
[2016-11-29] MEDS ORDERED: CITALOPRAM HYDROBR 20 MG TAB PO ONE (16:45)
[2016-11-29] MEDS ORDERED: ALLOPURINOL 300 MG TAB PO ONE (16:45)
[2016-11-29] MEDS ORDERED: DIGOXIN 0.125 MG TAB PO ONE (16:45)
[2016-11-29] MEDS ORDERED: ASPirin 81 mg TAB PO ONE (16:45)
[2016-11-29 17:00] VITALS: BP 127/58
[2016-11-29] MEDS ORDERED: TOPIRAMATE 100 MG TAB PO ONE (17:00)
[2016-11-29] MEDS ORDERED: OXcarbazepine 300 MG TAB PO ONE (17:00)
[2016-11-29] MEDS: MIDODRINE HCL 10 MG TAB PO SCH (17:00)
[2016-11-29] MEDS ORDERED: LEVETIRACETAM 500 MG TAB PO ONE (17:00)
[2016-11-29] MEDS: ENOXAPARIN SOD 40 MG/0.4 ML SYRINGE SC SCH (17:52)
[2016-11-29] MEDS: BUMETANIDE 1 MG TAB PO SCH (17:53)
[2016-11-29] MEDS ORDERED: MORP60TA25 PO (18:10)
[2016-11-29] MEDS ORDERED: FURO20TA PO (18:10)
[2016-11-29] MEDS ORDERED: BISA-51 OR (18:10)
[2016-11-29] MEDS ORDERED: MECL1TAB42 PO (18:10)
[2016-11-29] MEDS ORDERED: EST0625T PO (18:10)
[2016-11-29] MEDS ORDERED: CYA100I PO (18:10)
[2016-11-29] MEDS ORDERED: LORA-655 PO ×2 (18:10)
[2016-11-29] MEDS ORDERED: NITR0.4S29 SL (18:14)
[2016-11-29] MEDS ORDERED: PRO25I IM (18:14)
[2016-11-29] MEDS ORDERED: TEMA15CA PO (18:14)
[2016-11-29] MEDS ORDERED: PERCOT PO (18:14)
[2016-11-29] MEDS ORDERED: BUTACAP35 PO (18:14)
[2016-11-29] MEDS: VANCOMYCIN HCL 125MG/5ML ORAL SOL GT SCH ×2 (18:23→22:19)
[2016-11-29] MEDS: RIVAROXABAN 20 MG TAB PO SCH (18:24)
[2016-11-29 18:30] VITALS: BP 127/58
[2016-11-29] MEDS: HYDROcodone-ACET 5/325MG TAB PO PRN (19:43)
[2016-11-29 20:00] VITALS: BP 116/62
[2016-11-29] MEDS: ROPINIROLE 1 MG PO SCH (22:00)
[2016-11-29] MEDS ORDERED: LEVETIRACETAM 500 MG TAB PO SCH (22:00)
[2016-11-29] MEDS ORDERED: OXcarbazepine 300 MG TAB PO SCH (22:00)
[2016-11-29] MEDS: SOTALOL HCL 80 MG TAB PO SCH (22:19)
[2016-11-29] MEDS: TOPIRAMATE 100 MG TAB PO SCH (22:20)
[2016-11-29] MEDS: LEVETIRACETAM 500 MG TAB PO SCH (22:20)
[2016-11-29] MEDS: metroNIDAZOLE 500 MG TAB PO SCH (22:21)
[2016-11-29] MEDS: OXcarbazepine 300 MG TAB PO SCH (22:21)
[2016-11-29] MEDS: GEMFIBROZIL 600 MG TAB PO SCH (22:21)
[2016-11-29] MEDS: ATORVASTATIN 20 MG TAB PO SCH (22:21)
[2016-11-29] MEDS: cloNIDine HCL 0.1 MG TAB PO SCH (22:23)
[2016-11-29 22:50] VITALS: BP 116/62
[2016-11-29] MEDS: CHOLESTYRAMINE 4 GM POWDER GT SCH (22:58)
[2016-11-30] VITALS (7 sets, daily range): BP systolic 89–127; BP diastolic 46–68
[2016-11-30 01:13] LABS: Urine Bilirubin Negative (Negative); Urine Color PINK (Yellow); Urine Glucose Normal (Normal); Urine Ketone Negative (Negative); Urine Nitrite Negative (Negative); Urine RBC 539 /hpf (0 - 4); Urine Squamous Epithelial Cell MOD /hpf (<5); Urine Urobilinogen Normal (Negative); Urine WBC Clumps PRESENT /hpf (None Seen)
[2016-11-30 01:14] LABS: Urine Blood 3+ /uL (Negative)
[2016-11-30] MEDS: SOD CHL 0.9%/ KCL 40MEQ 1,000 ML IV SCH ×2 (01:28→10:38)
[2016-11-30] MEDS: metroNIDAZOLE 500 MG TAB PO SCH ×3 (05:56→21:58)
[2016-11-30] MEDS: ROPINIROLE 1 MG PO SCH ×3 (05:58→22:00)
[2016-11-30] MEDS: VANCOMYCIN HCL 125MG/5ML ORAL SOL GT SCH ×4 (05:58→21:57)
[2016-11-30] MEDS: BUMETANIDE 1 MG TAB PO SCH ×2 (05:58→17:47)
[2016-11-30] MEDS: MORPHINE SULF INJ 2 MG/ML SYRINGE 1ML IV PRN ×3 (06:10→19:15)
[2016-11-30] MEDS: LEVOTHYROXINE SODIUM 50 MCG TAB PO SCH (06:45)
[2016-11-30] MEDS: MIDODRINE HCL 10 MG TAB PO SCH ×3 (06:46→17:47)
[2016-11-30 08:07] LABS: Basophils # (auto) 0 uL; Basophils % (auto) 0.9 % (0.0-2.0); DEFINITIVE VIEW TRANSMISSION; Eosinophils # (auto) 0.1 uL; Eosinophils % (auto) 3.4 % (0.0-7.0); Hematocrit 34.7 % (36.0-46.0); Hemoglobin 11.3 g/dL (12.2-16.2); Lymphocytes # (auto) 1.1 uL; Lymphocytes % (auto) 24.7 % (10.0-50.0); Mean Corpuscular Hemoglobin 25.6 pg (28.0-32.0); Mean Corpuscular Hgb Conc. 32.4 g/dL (32.0-36.0); Mean Corpuscular Volume 79.1 fL (80.0-100.0); Mean Platelet Volume 8.1 fL (7.4-10.4); Monocytes # (auto) 0.3 uL; Monocytes % (auto) 7.5 % (0.0-12.0); Neutrophils # (auto) 2.7 uL; Neutrophils % (auto) 63.5 % (37.0-80.0); Platelet Count (auto) 232 10^3/uL (140-450); White Blood Cell 4.3 10^3/uL (4.4-10.8)
[2016-11-30 08:09] LABS: Red Cell Distribution Width 21.6 % (11.6-16.0)
[2016-11-30 08:37] LABS: Calcium 8.6 mg/dL (8.5-10.1); Potassium 3.5 mmol/L (3.5-5.1)
[2016-11-30 08:52] LABS: Anisocytosis Slight; Platelet Estimate Adequate
[2016-11-30 08:53] LABS: Hypochromia Slight; Microcytosis Slight; Ovalocytes FEW
[2016-11-30] MEDS ORDERED: ZONISAMIDE 100 MG PO SCH (10:00)
[2016-11-30] MEDS: ALLOPURINOL 300 MG TAB PO SCH (10:29)
[2016-11-30] MEDS: ENOXAPARIN SOD 40 MG/0.4 ML SYRINGE SC SCH (10:29)
[2016-11-30] MEDS: cloNIDine HCL 0.1 MG TAB PO SCH ×2 (10:30→21:59)
[2016-11-30] MEDS: CYANOCOBALAMIN 500 MCG TAB PO SCH (10:31)
[2016-11-30] MEDS: DIGOXIN 0.125 MG TAB PO SCH (10:32)
[2016-11-30] MEDS: FOLIC ACID 1 MG TAB PO SCH (10:32)
[2016-11-30] MEDS: GEMFIBROZIL 600 MG TAB PO SCH ×2 (10:33→21:58)
[2016-11-30] MEDS: ASPirin 81 mg TAB PO SCH (10:33)
[2016-11-30] MEDS: OXcarbazepine 300 MG TAB PO SCH ×2 (10:33→21:58)
[2016-11-30] MEDS: SOTALOL HCL 80 MG TAB PO SCH ×2 (10:33→21:59)
[2016-11-30] MEDS: LOSARTAN POTASSIUM 50 MG TAB PO SCH (10:34)
[2016-11-30] MEDS: TOPIRAMATE 100 MG TAB PO SCH ×2 (10:34→21:59)
[2016-11-30] MEDS: CITALOPRAM HYDROBR 20 MG TAB PO SCH (10:34)
[2016-11-30] MEDS: LEVETIRACETAM 500 MG TAB PO SCH ×2 (10:36→22:00)
[2016-11-30] MEDS: CHOLESTYRAMINE 4 GM POWDER GT SCH ×2 (14:19→23:10)
[2016-11-30] MEDS: RIVAROXABAN 20 MG TAB PO SCH (17:47)
[2016-11-30 20:35] LABS: BUN/Creatinine Ratio 16.3; Calcium 7.7 mg/dL (8.5-10.1)
[2016-11-30] MEDS: PANTOPRAZOLE SODIUM 40 MG/10 ML VIAL IV SCH (21:57)
[2016-11-30] MEDS: ATORVASTATIN 20 MG TAB PO SCH (21:58)
[2016-11-30] MEDS: SOD CHL 0.45% WITH 20MEQ KCL 1,000 ML IV SCH (22:26)
[2016-12-01] VITALS (7 sets, daily range): BP systolic 112–132; BP diastolic 68–76
[2016-12-01] MEDS: MORPHINE SULF INJ 2 MG/ML SYRINGE 1ML IV PRN ×3 (02:03→18:11)
[2016-12-01] MEDS: PROMETHAZINE HCL 25 MG/ML 1ML IV PRN ×3 (02:03→18:10)
[2016-12-01] MEDS: ROPINIROLE 1 MG PO SCH ×3 (06:00→21:57)
[2016-12-01] MEDS: VANCOMYCIN HCL 125MG/5ML ORAL SOL GT SCH (06:06)
[2016-12-01] MEDS: metroNIDAZOLE 500 MG TAB PO SCH ×3 (06:07→21:55)
[2016-12-01] MEDS: BUMETANIDE 1 MG TAB PO SCH ×2 (06:07→18:17)
[2016-12-01 06:28] LABS: BUN/Creatinine Ratio 18.2; Calcium 8.2 mg/dL (8.5-10.1); Potassium 3.8 mmol/L (3.5-5.1)
[2016-12-01] MEDS: MIDODRINE HCL 10 MG TAB PO SCH ×3 (06:39→18:18)
[2016-12-01] MEDS: LEVOTHYROXINE SODIUM 50 MCG TAB PO SCH (06:39)
[2016-12-01] MEDS: SOD CHL 0.45% WITH 20MEQ KCL 1,000 ML IV SCH (09:31)
[2016-12-01] MEDS: ENOXAPARIN SOD 40 MG/0.4 ML SYRINGE SC SCH (09:42)
[2016-12-01] MEDS: GEMFIBROZIL 600 MG TAB PO SCH ×2 (09:42→21:55)
[2016-12-01] MEDS: LEVETIRACETAM 500 MG TAB PO SCH ×2 (09:42→21:56)
[2016-12-01] MEDS: PANTOPRAZOLE SODIUM 40 MG/10 ML VIAL IV SCH (09:42)
[2016-12-01] MEDS: CITALOPRAM HYDROBR 20 MG TAB PO SCH (09:42)
[2016-12-01] MEDS: SOTALOL HCL 80 MG TAB PO SCH ×2 (09:43→21:56)
[2016-12-01] MEDS: CYANOCOBALAMIN 500 MCG TAB PO SCH (09:43)
[2016-12-01] MEDS: DIGOXIN 0.125 MG TAB PO SCH (09:43)
[2016-12-01] MEDS: TOPIRAMATE 100 MG TAB PO SCH ×2 (09:43→21:56)
[2016-12-01] MEDS: FOLIC ACID 1 MG TAB PO SCH (09:43)
[2016-12-01] MEDS: ASPirin 81 mg TAB PO SCH (09:43)
[2016-12-01] MEDS: cloNIDine HCL 0.1 MG TAB PO SCH ×3 (09:44→21:57)
[2016-12-01] MEDS: OXcarbazepine 300 MG TAB PO SCH ×2 (09:44→21:55)
[2016-12-01] MEDS: ALLOPURINOL 300 MG TAB PO SCH (09:44)
[2016-12-01] MEDS: LOSARTAN POTASSIUM 50 MG TAB PO SCH (09:44)
[2016-12-01] MEDS ORDERED: LOPERAMIDE HCL 2 MG CAP PO ONE (11:15)
[2016-12-01] MEDS: SUCRALFATE 1 GM/10 ML ORAL SUSP PO SCH ×3 (12:26→21:54)
[2016-12-01] MEDS: VANCOMYCIN HCL 125MG/5ML ORAL SOL PO SCH ×3 (12:36→21:55)
[2016-12-01] MEDS ORDERED: CHOLESTYRAMINE 4 GM POWDER PO SCH (14:00)
[2016-12-01] MEDS: RIVAROXABAN 20 MG TAB PO SCH (18:15)
[2016-12-01] MEDS: PANTOPRAZOLE 40 MG TAB PO SCH (21:55)
[2016-12-01] MEDS: ATORVASTATIN 20 MG TAB PO SCH (21:55)
[2016-12-02] MEDS: SOD CHL 0.45% WITH 20MEQ KCL 1,000 ML IV SCH ×2 (00:19→11:53)
[2016-12-02] MEDS: MORPHINE SULF INJ 2 MG/ML SYRINGE 1ML IV PRN ×4 (04:12→18:44)
[2016-12-02 05:00] VITALS: BP 118/71
[2016-12-02] MEDS: ROPINIROLE 1 MG PO SCH ×3 (05:58→21:59)
[2016-12-02] MEDS: VANCOMYCIN HCL 125MG/5ML ORAL SOL PO SCH ×4 (05:58→21:59)
[2016-12-02] MEDS: BUMETANIDE 1 MG TAB PO SCH ×2 (05:59→17:42)
[2016-12-02] MEDS: metroNIDAZOLE 500 MG TAB PO SCH ×3 (05:59→22:00)
[2016-12-02] MEDS: SUCRALFATE 1 GM/10 ML ORAL SUSP PO SCH ×4 (06:47→22:00)
[2016-12-02] MEDS: LEVOTHYROXINE SODIUM 50 MCG TAB PO SCH (06:47)
[2016-12-02] MEDS: MIDODRINE HCL 10 MG TAB PO SCH ×3 (06:47→17:43)
[2016-12-02 09:00] VITALS: BP 90/52
[2016-12-02] MEDS: ALLOPURINOL 300 MG TAB PO SCH (09:48)
[2016-12-02] MEDS: PANTOPRAZOLE 40 MG TAB PO SCH ×2 (09:49→22:01)
[2016-12-02] MEDS: ASPirin 81 mg TAB PO SCH (09:49)
[2016-12-02] MEDS: TOPIRAMATE 100 MG TAB PO SCH ×2 (09:50→22:01)
[2016-12-02] MEDS: CYANOCOBALAMIN 500 MCG TAB PO SCH (09:51)
[2016-12-02] MEDS: DIGOXIN 0.125 MG TAB PO SCH (09:52)
[2016-12-02] MEDS: CITALOPRAM HYDROBR 20 MG TAB PO SCH (09:53)
[2016-12-02] MEDS: LEVETIRACETAM 500 MG TAB PO SCH ×2 (09:53→22:00)
[2016-12-02] MEDS: GEMFIBROZIL 600 MG TAB PO SCH ×2 (09:54→22:01)
[2016-12-02] MEDS: OXcarbazepine 300 MG TAB PO SCH ×2 (09:55→22:01)
[2016-12-02] MEDS: FOLIC ACID 1 MG TAB PO SCH (09:56)
[2016-12-02] MEDS: LOSARTAN POTASSIUM 50 MG TAB PO SCH (10:00)
[2016-12-02] MEDS: SOTALOL HCL 80 MG TAB PO SCH ×2 (10:00→21:59)
[2016-12-02] MEDS: ENOXAPARIN SOD 40 MG/0.4 ML SYRINGE SC SCH (10:00)
[2016-12-02] MEDS: cloNIDine HCL 0.1 MG TAB PO SCH ×2 (10:00→22:00)
[2016-12-02] MEDS: LOPERAMIDE HCL 2 MG CAP PO SCH (11:53)
[2016-12-02 12:14] VITALS: BP 119/71
[2016-12-02 17:17] VITALS: BP 110/62
[2016-12-02] MEDS: RIVAROXABAN 20 MG TAB PO SCH (17:41)
[2016-12-02] MEDS: PROMETHAZINE HCL 25 MG/ML 1ML IV PRN (18:44)
[2016-12-02 21:30] VITALS: BP 122/78
[2016-12-02] MEDS: ATORVASTATIN 20 MG TAB PO SCH (22:00)
[2016-12-03] MEDS: PROMETHAZINE HCL 25 MG/ML 1ML IV PRN ×4 (00:56→19:30)
[2016-12-03] MEDS: MORPHINE SULF INJ 2 MG/ML SYRINGE 1ML IV PRN ×4 (01:03→19:39)
[2016-12-03 05:00] VITALS: BP 100/65
[2016-12-03 05:18] LABS: Basophils # (auto) 0 uL; Basophils % (auto) 0.4 % (0.0-2.0); DEFINITIVE VIEW TRANSMISSION; Eosinophils # (auto) 0.1 uL; Eosinophils % (auto) 2.1 % (0.0-7.0); Hematocrit 33.6 % (36.0-46.0); Hemoglobin 10.9 g/dL (12.2-16.2); Lymphocytes # (auto) 1.2 uL; Lymphocytes % (auto) 20.3 % (10.0-50.0); Mean Corpuscular Hgb Conc. 32.6 g/dL (32.0-36.0); Mean Corpuscular Volume 79.7 fL (80.0-100.0); Mean Platelet Volume 8.9 fL (7.4-10.4); Monocytes # (auto) 0.4 uL; Monocytes % (auto) 7.7 % (0.0-12.0); Neutrophils % (auto) 69.5 % (37.0-80.0); Platelet Count (auto) 205 10^3/uL (140-450); White Blood Cell 5.7 10^3/uL (4.4-10.8)
[2016-12-03 05:38] LABS: Red Cell Distribution Width 21.7 % (11.6-16.0)
[2016-12-03 05:58] LABS: Albumin 3.3 g/dL (3.4-5.0); Bilirubin, Total 0.4 mg/dL (0.2-1.0); Calcium 7.9 mg/dL (8.5-10.1); Potassium 3.1 mmol/L (3.5-5.1); Total Protein 6.5 g/dL (6.4-8.2)
[2016-12-03] MEDS: BUMETANIDE 1 MG TAB PO SCH ×2 (06:23→17:50)
[2016-12-03] MEDS: VANCOMYCIN HCL 125MG/5ML ORAL SOL PO SCH ×4 (06:23→22:00)
[2016-12-03] MEDS: ROPINIROLE 1 MG PO SCH ×3 (06:23→22:00)
[2016-12-03] MEDS: SUCRALFATE 1 GM/10 ML ORAL SUSP PO SCH ×4 (06:24→22:00)
[2016-12-03] MEDS: MIDODRINE HCL 10 MG TAB PO SCH ×3 (06:24→17:52)
[2016-12-03] MEDS: LEVOTHYROXINE SODIUM 50 MCG TAB PO SCH (06:24)
[2016-12-03] MEDS: metroNIDAZOLE 500 MG TAB PO SCH ×3 (06:24→22:01)
[2016-12-03 08:05] LABS: Anisocytosis Slight; Hypochromia Slight; Platelet Estimate Adequate
[2016-12-03 09:33] VITALS: BP 99/59
[2016-12-03] MEDS: LOSARTAN POTASSIUM 50 MG TAB PO SCH (10:00)
[2016-12-03] MEDS: cloNIDine HCL 0.1 MG TAB PO SCH ×2 (10:00→22:00)
[2016-12-03] MEDS: SOTALOL HCL 80 MG TAB PO SCH ×2 (10:00→22:00)
[2016-12-03] MEDS: ENOXAPARIN SOD 40 MG/0.4 ML SYRINGE SC SCH (10:07)
[2016-12-03] MEDS: FOLIC ACID 1 MG TAB PO SCH (10:07)
[2016-12-03] MEDS: OXcarbazepine 300 MG TAB PO SCH ×2 (10:08→22:02)
[2016-12-03] MEDS: PANTOPRAZOLE 40 MG TAB PO SCH ×2 (10:08→22:02)
[2016-12-03] MEDS: CITALOPRAM HYDROBR 20 MG TAB PO SCH (10:08)
[2016-12-03] MEDS: ASPirin 81 mg TAB PO SCH (10:08)
[2016-12-03] MEDS: ALLOPURINOL 300 MG TAB PO SCH (10:08)
[2016-12-03] MEDS: CYANOCOBALAMIN 500 MCG TAB PO SCH (10:09)
[2016-12-03] MEDS: LEVETIRACETAM 500 MG TAB PO SCH ×2 (10:09→22:01)
[2016-12-03] MEDS: TOPIRAMATE 100 MG TAB PO SCH ×2 (10:10→22:02)
[2016-12-03] MEDS: GEMFIBROZIL 600 MG TAB PO SCH ×2 (10:10→22:01)
[2016-12-03] MEDS: LOPERAMIDE HCL 2 MG CAP PO SCH (10:10)
[2016-12-03] MEDS: DIGOXIN 0.125 MG TAB PO SCH (10:11)
[2016-12-03 13:00] VITALS: BP 119/77
[2016-12-03 16:52] VITALS: BP 111/61
[2016-12-03] MEDS: RIVAROXABAN 20 MG TAB PO SCH (17:56)
[2016-12-03] MEDS: ATORVASTATIN 20 MG TAB PO SCH (22:01)
[2016-12-03 22:08] VITALS: BP 117/76
[2016-12-04] MEDS: PROMETHAZINE HCL 25 MG/ML 1ML IV PRN ×5 (01:34→21:45)
[2016-12-04] MEDS: MORPHINE SULF INJ 2 MG/ML SYRINGE 1ML IV PRN ×5 (01:37→21:45)
[2016-12-04 05:26] VITALS: BP 104/65
[2016-12-04] MEDS: VANCOMYCIN HCL 125MG/5ML ORAL SOL PO SCH ×4 (06:25→21:43)
[2016-12-04] MEDS: BUMETANIDE 1 MG TAB PO SCH ×2 (06:25→17:11)
[2016-12-04] MEDS: ROPINIROLE 1 MG PO SCH ×3 (06:25→21:43)
[2016-12-04] MEDS: SUCRALFATE 1 GM/10 ML ORAL SUSP PO SCH ×4 (06:26→21:43)
[2016-12-04] MEDS: metroNIDAZOLE 500 MG TAB PO SCH ×3 (06:26→21:44)
[2016-12-04] MEDS: MIDODRINE HCL 10 MG TAB PO SCH ×3 (06:26→18:14)
[2016-12-04] MEDS: LEVOTHYROXINE SODIUM 50 MCG TAB PO SCH (06:26)
[2016-12-04 06:48] LABS: INR 1.03 (0.9-1.15); Partial Thromboplastin Time 27.3 sec (22.64-33.71); Prothrombin Time 11.2 sec (9.37-12.3)
[2016-12-04 08:42] VITALS: BP 131/74
[2016-12-04] MEDS ORDERED: HEPARIN 1,000 UNITS/ml 1ML VIAL ONE (09:17)
[2016-12-04] MEDS ORDERED: ceFAZolin 1GM VL ONE (09:17)
[2016-12-04] MEDS ORDERED: HEPARIN SODIUM (PORCINE) 5000 UNITS/ML 1ML VIAL ONE (09:17)
[2016-12-04] MEDS ORDERED: LIDOCAINE 1% HCL (LOCAL ANESTH.) INJ 20ML MDV ONE ×2 (09:17→10:48)
[2016-12-04] MEDS ORDERED: BUPIVACAINE 0.25% INJ 50ML VIAL ONE (09:17)
[2016-12-04] MEDS ORDERED: LEVOFLOXACIN 500MG 100 ML IV ONE (10:13)
[2016-12-04] MEDS ORDERED: fentaNYL CITRATE 100 MCG/2 ML VL ONE (10:17)
[2016-12-04] MEDS ORDERED: DEXAMETHASONE SOD PHOS 10MG/1ML VIAL INJ ONE (10:17)
[2016-12-04] MEDS ORDERED: MIDAZOLAM HCL 1MG/1ML-2 ML VIAL ONE (10:17)
[2016-12-04] MEDS ORDERED: ONDANSETRON HCL 4 MG/2 ML VIAL ONE (10:17)
[2016-12-04] MEDS ORDERED: LABETALOL HCL 5 MG/ML 4ML SYRINGE IV PRN (11:30)
[2016-12-04] MEDS ORDERED: ONDANSETRON HCL 4 MG/2 ML VIAL IV ONE (11:30)
[2016-12-04] MEDS ORDERED: HYDROmorphone HCL 2 MG/ML VL IV PRN (11:30)
[2016-12-04] MEDS: CITALOPRAM HYDROBR 20 MG TAB PO SCH (13:07)
[2016-12-04] MEDS: PANTOPRAZOLE 40 MG TAB PO SCH ×2 (13:07→21:44)
[2016-12-04] MEDS: LOSARTAN POTASSIUM 50 MG TAB PO SCH (13:08)
[2016-12-04] MEDS: OXcarbazepine 300 MG TAB PO SCH ×2 (13:08→21:45)
[2016-12-04] MEDS: TOPIRAMATE 100 MG TAB PO SCH ×2 (13:09→21:44)
[2016-12-04] MEDS: ASPirin 81 mg TAB PO SCH (13:09)
[2016-12-04] MEDS: CYANOCOBALAMIN 500 MCG TAB PO SCH (13:09)
[2016-12-04] MEDS: FOLIC ACID 1 MG TAB PO SCH (13:09)
[2016-12-04] MEDS: cloNIDine HCL 0.1 MG TAB PO SCH ×2 (13:10→22:00)
[2016-12-04] MEDS: ALLOPURINOL 300 MG TAB PO SCH (13:11)
[2016-12-04] MEDS: DIGOXIN 0.125 MG TAB PO SCH (13:13)
[2016-12-04] MEDS: GEMFIBROZIL 600 MG TAB PO SCH ×2 (13:13→21:44)
[2016-12-04] MEDS: SOTALOL HCL 80 MG TAB PO SCH ×2 (13:13→22:30)
[2016-12-04] MEDS: LEVETIRACETAM 500 MG TAB PO SCH ×2 (13:31→21:44)
[2016-12-04] MEDS: LOPERAMIDE HCL 2 MG CAP PO SCH (13:32)
[2016-12-04 13:33] VITALS: BP 139/77
[2016-12-04 17:25] VITALS: BP 107/63
[2016-12-04] MEDS: RIVAROXABAN 20 MG TAB PO SCH (18:16)
[2016-12-04] MEDS: ATORVASTATIN 20 MG TAB PO SCH (21:44)
[2016-12-05 00:10] VITALS: BP 93/62
[2016-12-05] MEDS: PROMETHAZINE HCL 25 MG/ML 1ML IV PRN (03:16)
[2016-12-05] MEDS: MORPHINE SULF INJ 2 MG/ML SYRINGE 1ML IV PRN ×2 (03:16→11:09)
[2016-12-05 05:25] VITALS: BP 159/72
[2016-12-05 05:37] VITALS: BP 93/58
[2016-12-05] MEDS: BUMETANIDE 1 MG TAB PO SCH ×2 (06:00→18:00)
[2016-12-05] MEDS: ROPINIROLE 1 MG PO SCH ×2 (06:45→14:00)
[2016-12-05] MEDS: VANCOMYCIN HCL 125MG/5ML ORAL SOL PO SCH ×3 (06:45→18:00)
[2016-12-05] MEDS: LEVOTHYROXINE SODIUM 50 MCG TAB PO SCH (06:46)
[2016-12-05] MEDS: metroNIDAZOLE 500 MG TAB PO SCH ×2 (06:46→14:00)
[2016-12-05] MEDS: SUCRALFATE 1 GM/10 ML ORAL SUSP PO SCH ×3 (06:46→17:00)
[2016-12-05] MEDS: MIDODRINE HCL 10 MG TAB PO SCH ×3 (06:46→17:00)
[2016-12-05 09:16] VITALS: BP 104/55
[2016-12-05] MEDS: FOLIC ACID 1 MG TAB PO SCH (11:06)
[2016-12-05] MEDS: ASPirin 81 mg TAB PO SCH (11:06)
[2016-12-05] MEDS: GEMFIBROZIL 600 MG TAB PO SCH (11:07)
[2016-12-05] MEDS: LEVETIRACETAM 500 MG TAB PO SCH (11:07)
[2016-12-05] MEDS: SOTALOL HCL 80 MG TAB PO SCH (11:08)
[2016-12-05] MEDS: CYANOCOBALAMIN 500 MCG TAB PO SCH (11:08)
[2016-12-05] MEDS: ALLOPURINOL 300 MG TAB PO SCH (11:08)
[2016-12-05] MEDS: LOPERAMIDE HCL 2 MG CAP PO SCH (11:08)
[2016-12-05] MEDS: OXcarbazepine 300 MG TAB PO SCH (11:08)
[2016-12-05] MEDS: PANTOPRAZOLE 40 MG TAB PO SCH (11:08)
[2016-12-05] MEDS: TOPIRAMATE 100 MG TAB PO SCH (11:08)
[2016-12-05] MEDS: cloNIDine HCL 0.1 MG TAB PO SCH (11:27)
[2016-12-05] MEDS: CITALOPRAM HYDROBR 20 MG TAB PO SCH (11:27)
[2016-12-05] MEDS: LOSARTAN POTASSIUM 50 MG TAB PO SCH (11:27)
[2016-12-05] MEDS: DIGOXIN 0.125 MG TAB PO SCH (11:28)
[2016-12-05 13:00] VITALS: BP 114/62
[2016-12-05 13:07] LABS: Fecal Fats Neutral Normal (.); Fecal Fats Total Normal (.)
[2016-12-05] MEDS: HYDROcodone-ACET 5/325MG TAB PO PRN (16:59)
[2016-12-05 17:34] VITALS: BP 99/62
[2016-12-05] MEDS: RIVAROXABAN 20 MG TAB PO SCH (18:00)
[2016-12-07 04:10] LABS: Endomysial IgA Antibody Negative (Negative)
== END 2016-12-05 18:30 | disposition home or self-care (01) | DRG 249 ==
LOC: ER 11:12 → TELE 11:13 → TELE-CENTR 17:40
PROVIDERS: ADMIT Internal Medicine; ATTEND Internal Medicine Pulmonary Disease
PROC: 05H533Z Insertion of Infusion Device into Right Subclavian Vein, Percutaneous Approach (ICD-10-PCS; 2016-12-04)
PROC: 0JH60WZ Insertion of Totally Implantable Vascular Access Device into Chest Subcutaneous Tissue and Fascia, Open Approach (ICD-10-PCS; principal; 2016-12-04 10:27)
DX: K52.9 Noninfective gastroenteritis and colitis, unspecified (principal); E87.0 Hyperosmolality and hypernatremia; G40.409 Other generalized epilepsy and epileptic syndromes, not intractable, without status epilepticus; I48.91 Unspecified atrial fibrillation; I10 Essential (primary) hypertension; F32.9 Major depressive disorder, single episode, unspecified; R42 Dizziness and giddiness; E78.5 Hyperlipidemia, unspecified; E87.6 Hypokalemia; D63.8 Anemia in other chronic diseases classified elsewhere; K21.9 Gastro-esophageal reflux disease without esophagitis; M10.9 Gout, unspecified; E03.9 Hypothyroidism, unspecified; G25.81 Restless legs syndrome; F41.0 Panic disorder [episodic paroxysmal anxiety]; J44.9 Chronic obstructive pulmonary disease, unspecified; Z82.0 Family history of epilepsy and other diseases of the nervous system; Z82.3 Family history of stroke; Z82.49 Family history of ischemic heart disease and other diseases of the circulatory system; Z82.5 Family history of asthma and other chronic lower respiratory diseases; Z85.72 Personal history of non-Hodgkin lymphomas; Z95.0 Presence of cardiac pacemaker; Z90.49 Acquired absence of other specified parts of digestive tract; Z90.710 Acquired absence of both cervix and uterus; Z88.8 Allergy status to other drugs, medicaments and biological substances; R55 Syncope and collapse
CPT/HCPCS: 36415; 70450; 71010; 80048; 80053; 80307; 81001; 82550; 82607; 82705; 82746; 82784; 82962; 83516; 83605; 83735; 84443; 84484; 85025; 85610; 85652; 85730; 86255; 87040; 87081; 87086; 87177; 87493; 93005; 93886; 94761; 95819; C1788; C9113; J0690; J1100; J1956; J2001; J2250; J2405; J3480; J3490

== ENCOUNTER 2017-01-17 18:09 | Emergency (ER) | payer MEDICAID ==
[~2017-01-17] VITALS: Ht 160 cm; Wt 66.7 kg
[~2017-01-17 18:09] MED LIST changes: +BISA-51 OR; +BUTACAP35 PO; +CYA100I PO; +EST0625T PO; +FURO20TA PO; +HYDR-4663 PO; +LORA-655 PO; +MECL1TAB42 PO; +MORP60TA25 PO; +NITR0.4S29 SL; -NOR5T PO; -OMEP20CA5 PO; +OMEP20CA74 PO; +PERCOT PO; +TEMA15CA PO; -VANC125PO PO
[2017-01-17 19:21] LABS: Albumin 3.7 g/dL (3.4-5.0); BUN/Creatinine Ratio 20.6; Calcium 8.7 mg/dL (8.5-10.1); Potassium 3.4 mmol/L (3.5-5.1)
[2017-01-17 19:24] LABS: Bilirubin, Total 0.5 mg/dL (0.2-1.0); Total Protein 7.5 g/dL (6.4-8.2)
[2017-01-17 19:41] LABS: Basophils # (auto) 0.1 uL; Basophils % (auto) 0.8 % (0.0-2.0); CONDITION Y; DEFINITIVE SEE PRINTOUT; Eosinophils # (auto) 0.1 uL; Eosinophils % (auto) 1.5 % (0.0-7.0); Hematocrit 36.9 % (36.0-46.0); Lymphocytes # (auto) 2.5 uL; Lymphocytes % (auto) 34.1 % (10.0-50.0); Mean Corpuscular Hemoglobin 25.1 pg (28.0-32.0); Mean Corpuscular Hgb Conc. 32.4 g/dL (32.0-36.0); Mean Corpuscular Volume 77.6 fL (80.0-100.0); Mean Platelet Volume 9.3 fL (7.4-10.4); Monocytes # (auto) 0.8 uL; Monocytes % (auto) 10.8 % (0.0-12.0); Neutrophils # (auto) 3.9 uL; Neutrophils % (auto) 52.8 % (37.0-80.0); Platelet Count (auto) 257 10^3/uL (140-450); Red Cell Distribution Width 18.9 % (11.6-16.0); White Blood Cell 7.4 10^3/uL (4.4-10.8)
[2017-01-17 20:49] LABS: Anisocytosis Slight; Platelet Estimate Adequate
[2017-01-17 20:50] LABS: Hypochromia Slight; Ovalocytes FEW
[2017-01-18] MEDS ORDERED: ONDANSETRON HCL 4 MG/2 ML VIAL IV ONE (07:45)
[2017-01-18] MEDS ORDERED: MORPHINE SULFATE 4 MG/ML SYRG IV ONE (07:45)
[2017-01-18 09:12] VITALS: BP 123/77
[2017-01-18] MEDS ORDERED: HYDROmorphone HCL 2 MG/ML VL IV ONE (10:45)
== END 2017-01-18 11:25 | disposition home or self-care (01) ==
LOC: ER 18:41
DX: R10.13 Epigastric pain (principal); R11.2 Nausea with vomiting, unspecified; R19.7 Diarrhea, unspecified; K92.1 Melena; I48.91 Unspecified atrial fibrillation; M10.9 Gout, unspecified; E78.5 Hyperlipidemia, unspecified; I10 Essential (primary) hypertension; E07.9 Disorder of thyroid, unspecified; Z88.1 Allergy status to other antibiotic agents; Z88.8 Allergy status to other drugs, medicaments and biological substances; Z79.899 Other long term (current) drug therapy; Z90.49 Acquired absence of other specified parts of digestive tract; Z90.710 Acquired absence of both cervix and uterus; Z95.0 Presence of cardiac pacemaker
CPT/HCPCS: 36415; 71010; 74176; 80053; 85025; 93005; 96374; 96375; 99285; J1170; J2270; J2405

== ENCOUNTER 2017-01-23 03:05 | Inpatient (IN) | payer MEDICAID ==
[~2017-01-23] VITALS: Ht 165.1 cm; Wt 71.0 kg
[~2017-01-23 03:05] MED LIST changes: -LEVE750T3; +LEVE750T3 PO; -MIDO2.5T; +MIDO2.5T PO; -OXCA300T26; +OXCA300T26 PO; -TOPI100T68; +TOPI100T68 PO; -ZONI100C43; +ZONI100C43 PO
[2017-01-23 04:03] LABS: Basophils # (auto) 0 uL; Basophils % (auto) 0.4 % (0.0-2.0); CONDITION Y; DEFINITIVE SEE PRINTOUT; Eosinophils # (auto) 0.1 uL; Eosinophils % (auto) 1.5 % (0.0-7.0); Hematocrit 34.9 % (36.0-46.0); Hemoglobin 11.4 g/dL (12.2-16.2); Lymphocytes # (auto) 1.5 uL; Lymphocytes % (auto) 23.2 % (10.0-50.0); Mean Corpuscular Hemoglobin 25.2 pg (28.0-32.0); Mean Corpuscular Hgb Conc. 32.5 g/dL (32.0-36.0); Mean Corpuscular Volume 77.6 fL (80.0-100.0); Monocytes # (auto) 0.6 uL; Monocytes % (auto) 9.7 % (0.0-12.0); Neutrophils # (auto) 4.2 uL; Neutrophils % (auto) 65.2 % (37.0-80.0); Platelet Count (auto) 190 10^3/uL (140-450); Red Cell Distribution Width 19.4 % (11.6-16.0); White Blood Cell 6.4 10^3/uL (4.4-10.8)
[2017-01-23 04:14] LABS: INR 1.01 (0.9-1.15); Partial Thromboplastin Time 27.5 sec (22.64-33.71)
[2017-01-23 04:20] LABS: Chloride 111 mmol/L (98-107); Potassium 3.1 mmol/L (3.5-5.1); Sodium 144 mmol/L (136-145)
[2017-01-23 04:25] LABS: Albumin 3.6 g/dL (3.4-5.0); Amylase 26 U/L (25-115); Anion Gap 13 (5-15); Aspartate Aminotransferase 7 U/L (15-37); BUN/Creatinine Ratio 23.9; Blood Urea Nitrogen 22 mg/dL (7-18); Calcium 8.7 mg/dL (8.5-10.1); Carbon Dioxide 20 mmol/L (21-32); GFR African American 80 mL/min; GFR Non-African American 66 mL/min; Glucose 94 mg/dL (74-106); Magnesium 2.2 mg/dL (1.6-2.6)
[2017-01-23 04:30] LABS: Alkaline Phosphatase 84 U/L (45-117); Bilirubin, Total 0.4 mg/dL (0.2-1.0)
[2017-01-23] MEDS ORDERED: ONDANSETRON HCL 4 MG/2 ML VIAL IV ONE ×2 (06:15→09:45)
[2017-01-23] MEDS ORDERED: metroNIDAZOLE 500 MG TAB PO ONE (06:15)
[2017-01-23] MEDS ORDERED: SODIUM CHLORIDE 0.9% 1,000 ML IV ONE (06:15)
[2017-01-23] MEDS ORDERED: HYDROmorphone HCL 2 MG/ML VL IV ONE ×2 (06:15→09:45)
[2017-01-23] MEDS ORDERED: POTASSIUM CHL 20 Meq TABLET PO ONE (08:00)
[2017-01-23] MEDS ORDERED: ONDANSETRON HCL 4 MG/2 ML VIAL ONE (09:19)
[2017-01-23] MEDS ORDERED: HYDROmorphone HCL 2 MG/ML VL ONE (09:20)
[2017-01-23] MEDS ORDERED: PANTOPRAZOLE 40 MG TAB PO ONE (10:30)
[2017-01-23] MEDS ORDERED: DIGOXIN 0.25 MG TAB PO ONE (10:30)
[2017-01-23] MEDS ORDERED: LORazepam 2MG/ML-1ML VIAL IV PRN (10:30)
[2017-01-23] MEDS ORDERED: LEVETIRACETAM 500 MG TAB PO ONE (10:30)
[2017-01-23] MEDS ORDERED: LEVOFLOXACIN 500MG 100 ML IV ONE (10:30)
[2017-01-23] MEDS ORDERED: OXcarbazepine 300 MG TAB PO ONE (10:30)
[2017-01-23] MEDS ORDERED: cloNIDine HCL 0.1 MG TAB PO PRN (10:30)
[2017-01-23] MEDS ORDERED: TOPIRAMATE 100 MG TAB PO ONE (10:30)
[2017-01-23] MEDS ORDERED: TEMAZEPAM 15 MG CAP PO PRN (10:45)
[2017-01-23] MEDS ORDERED: LEVOTHYROXINE SODIUM 50 MCG TAB PO ONE (10:45)
[2017-01-23] MEDS ORDERED: ACETAMINOPHEN 325 MG TAB PO PRN (10:45)
[2017-01-23] MEDS ORDERED: HYDROcodone-ACET 5/325MG TAB PO PRN (10:45)
[2017-01-23] MEDS: SODIUM CHLORIDE 0.9% 1,000 ML IV SCH (11:30)
[2017-01-23] MEDS: FAMOTIDINE 20 MG TAB PO SCH ×2 (11:36→21:22)
[2017-01-23] MEDS: LOSARTAN POTASSIUM 50 MG TAB PO SCH (11:36)
[2017-01-23] MEDS: metroNIDAZOLE 500MG/100ML 100 ML IV SCH ×3 (11:36→23:42)
[2017-01-23] MEDS: REQUIP 1 MG PO SCH ×2 (14:58→22:00)
[2017-01-23] MEDS: MORPHINE SULF INJ 2 MG/ML SYRINGE 1ML IV PRN ×2 (17:34→21:45)
[2017-01-23] MEDS: ONDANSETRON HCL 4 MG/2 ML VIAL IV PRN (17:34)
[2017-01-23 17:45] VITALS: BP 107/60
[2017-01-23] MEDS ORDERED: LINA145C OR (19:09)
[2017-01-23] MEDS ORDERED: CLO01T PO (19:09)
[2017-01-23] MEDS ORDERED: DIGO1TAB37 PO (19:09)
[2017-01-23] MEDS ORDERED: POTA1TAB4 PO (19:09)
[2017-01-23] MEDS ORDERED: DIAZ10GE RE (19:09)
[2017-01-23] MEDS ORDERED: [UNRECOGNIZED DRUG - CODE] PO (19:09)
[2017-01-23] MEDS ORDERED: EST0625T PO (19:09)
[2017-01-23] MEDS ORDERED: CYAN100023 PO (19:09)
[2017-01-23] MEDS ORDERED: LOSA50TA6 PO (19:09)
[2017-01-23 19:30] VITALS: BP 128/80
[2017-01-23 20:00] VITALS: BP 127/78
[2017-01-23] MEDS: GEMFIBROZIL 600 MG TAB PO SCH (21:22)
[2017-01-23] MEDS: LEVETIRACETAM 500 MG TAB PO SCH (21:22)
[2017-01-23] MEDS: cloNIDine HCL 0.1 MG TAB PO SCH (21:47)
[2017-01-23] MEDS: TOPIRAMATE 100 MG TAB PO SCH (21:47)
[2017-01-23] MEDS: OXcarbazepine 300 MG TAB PO SCH (21:47)
[2017-01-23 22:00] VITALS: BP 127/78
[2017-01-23] MEDS: ZONEGRAN 100 MG PO SCH (22:00)
[2017-01-24] MEDS: SODIUM CHLORIDE 0.9% 1,000 ML IV SCH ×3 (01:36→12:53)
[2017-01-24] MEDS: MORPHINE SULF INJ 2 MG/ML SYRINGE 1ML IV PRN ×5 (03:12→22:16)
[2017-01-24 04:20] LABS: Urine Bilirubin Negative (Negative); Urine Blood TRACE /uL (Negative); Urine Color Yellow (Yellow); Urine Glucose Normal (Normal); Urine Hyaline Cast FEW /lpf (0 - 2); Urine Ketone Negative (Negative); Urine Nitrite Negative (Negative); Urine RBC 2 /hpf (0 - 4); Urine Squamous Epithelial Cell MOD /hpf (<5); Urine Urobilinogen Normal (Negative)
[2017-01-24 05:00] VITALS: BP 101/56
[2017-01-24] MEDS: metroNIDAZOLE 500MG/100ML 100 ML IV SCH ×3 (05:24→18:14)
[2017-01-24] MEDS: REQUIP 1 MG PO SCH ×3 (06:00→22:00)
[2017-01-24] MEDS: LEVOTHYROXINE SODIUM 50 MCG TAB PO SCH (06:16)
[2017-01-24 07:26] LABS: Basophils # (auto) 0 uL; Basophils % (auto) 0.1 % (0.0-2.0); CONDITION Y; DEFINITIVE SEE PRINTOUT; Eosinophils # (auto) 0.1 uL; Eosinophils % (auto) 1.7 % (0.0-7.0); Hematocrit 31.5 % (36.0-46.0); Hemoglobin 10.3 g/dL (12.2-16.2); Lymphocytes # (auto) 1.1 uL; Lymphocytes % (auto) 36.1 % (10.0-50.0); Mean Corpuscular Hemoglobin 25.5 pg (28.0-32.0); Mean Corpuscular Hgb Conc. 32.6 g/dL (32.0-36.0); Mean Corpuscular Volume 78.4 fL (80.0-100.0); Mean Platelet Volume 9.6 fL (7.4-10.4); Monocytes # (auto) 0.4 uL; Neutrophils # (auto) 1.5 uL; Neutrophils % (auto) 50.1 % (37.0-80.0); Platelet Count (auto) 129 10^3/uL (140-450); White Blood Cell 3.1 10^3/uL (4.4-10.8)
[2017-01-24 08:05] LABS: BUN/Creatinine Ratio 18.8; Bilirubin, Total 0.2 mg/dL (0.2-1.0); Total Protein 5.7 g/dL (6.4-8.2)
[2017-01-24] MEDS: ONDANSETRON HCL 4 MG/2 ML VIAL IV PRN ×4 (08:49→22:16)
[2017-01-24 09:00] VITALS: BP 109/71
[2017-01-24] MEDS ORDERED: PANTOPRAZOLE 40 MG TAB PO SCH (10:00)
[2017-01-24] MEDS: ZONEGRAN 100 MG PO SCH ×2 (10:00→22:00)
[2017-01-24] MEDS: LEVETIRACETAM 500 MG TAB PO SCH ×2 (11:05→22:20)
[2017-01-24] MEDS: LEVOFLOXACIN 500MG 100 ML IV SCH (11:05)
[2017-01-24] MEDS: GEMFIBROZIL 600 MG TAB PO SCH ×2 (11:06→22:18)
[2017-01-24] MEDS: TOPIRAMATE 100 MG TAB PO SCH ×2 (11:06→22:17)
[2017-01-24] MEDS: ESTROGEN CONJ 0.3 MG TAB PO SCH (11:06)
[2017-01-24] MEDS: B-COMPLEX W/ C & FOLIC ACID(NEPHROVITE TAB) PO SCH (11:06)
[2017-01-24] MEDS: OXcarbazepine 300 MG TAB PO SCH ×2 (11:06→22:16)
[2017-01-24] MEDS: MULTIPLE VITAMIN TAB PO SCH (11:06)
[2017-01-24] MEDS: cloNIDine HCL 0.1 MG TAB PO SCH ×2 (11:07→22:17)
[2017-01-24] MEDS: LOSARTAN POTASSIUM 50 MG TAB PO SCH (11:07)
[2017-01-24] MEDS: DIGOXIN 0.25 MG TAB PO SCH (11:09)
[2017-01-24] MEDS ORDERED: POTASSIUM CHLORIDE 8 MEQ TAB PO ONE (11:15)
[2017-01-24] MEDS: BOOST PLUS 8 ounce PO SCH ×2 (12:00→18:00)
[2017-01-24 13:00] VITALS: BP 97/58
[2017-01-24 17:56] VITALS: BP 134/78
[2017-01-24] MEDS: CITALOPRAM HYDROBR 20 MG TAB PO SCH (18:14)
[2017-01-24 18:32] LABS: Calcium 7.7 mg/dL (8.5-10.1); Potassium 3.8 mmol/L (3.5-5.1)
[2017-01-24 18:34] LABS: BUN/Creatinine Ratio 15.2
[2017-01-24 22:00] VITALS: BP 117/70
[2017-01-24] MEDS: PANTOPRAZOLE 40 MG TAB PO SCH (22:16)
[2017-01-25] MEDS: metroNIDAZOLE 500MG/100ML 100 ML IV SCH ×3 (00:12→12:00)
[2017-01-25] MEDS: SODIUM CHLORIDE 0.9% 1,000 ML IV SCH ×3 (00:15→12:01)
[2017-01-25] MEDS: ONDANSETRON HCL 4 MG/2 ML VIAL IV PRN ×3 (02:26→12:27)
[2017-01-25] MEDS: MORPHINE SULF INJ 2 MG/ML SYRINGE 1ML IV PRN ×2 (02:26→06:28)
[2017-01-25 05:00] VITALS: BP 120/70
[2017-01-25] MEDS: REQUIP 1 MG PO SCH ×2 (06:00→15:49)
[2017-01-25] MEDS: LEVOTHYROXINE SODIUM 50 MCG TAB PO SCH (06:31)
[2017-01-25 07:36] LABS: Basophils # (auto) 0 uL; Basophils % (auto) 0.2 % (0.0-2.0); CONDITION Y; DEFINITIVE SEE PRINTOUT; Eosinophils # (auto) 0 uL; Eosinophils % (auto) 1.1 % (0.0-7.0); Hematocrit 31.1 % (36.0-46.0); Lymphocytes # (auto) 0.8 uL; Lymphocytes % (auto) 31.6 % (10.0-50.0); Mean Corpuscular Hemoglobin 25.4 pg (28.0-32.0); Mean Corpuscular Hgb Conc. 32.2 g/dL (32.0-36.0); Mean Corpuscular Volume 78.8 fL (80.0-100.0); Mean Platelet Volume 9.3 fL (7.4-10.4); Monocytes # (auto) 0.3 uL; Monocytes % (auto) 10.4 % (0.0-12.0); Neutrophils # (auto) 1.5 uL; Neutrophils % (auto) 56.7 % (37.0-80.0); Platelet Count (auto) 129 10^3/uL (140-450); White Blood Cell 2.7 10^3/uL (4.4-10.8)
[2017-01-25 07:53] LABS: BUN/Creatinine Ratio 12.7; Bilirubin, Total 0.2 mg/dL (0.2-1.0); Potassium 3.2 mmol/L (3.5-5.1); Total Protein 5.5 g/dL (6.4-8.2)
[2017-01-25 08:00] VITALS: BP 114/69
[2017-01-25] MEDS: BOOST PLUS 8 ounce PO SCH ×2 (08:00→12:00)
[2017-01-25] MEDS ORDERED: SODIUM CHLORIDE LOCK 10 ML ONE (08:05)
[2017-01-25] MEDS ORDERED: MIDAZOLAM HCL 5 MG/ML-1ML VIAL ONE (08:05)
[2017-01-25] MEDS ORDERED: fentaNYL CITRATE 100 MCG/2 ML VL ONE (08:05)
[2017-01-25] MEDS ORDERED: diphenhdrAMINE HCL 50 MG/1 ML VL ONE (08:06)
[2017-01-25] MEDS ORDERED: NALOXONE HCL 0.4 MG/ML VIAL ONE (08:12)
[2017-01-25] MEDS ORDERED: FLUMAZENIL 0.1 MG/ML INJ 10ML MDV IV ONE (08:12)
[2017-01-25 08:34] VITALS: BP 114/69
[2017-01-25 08:45] LABS: Anisocytosis Slight; Hypochromia Slight; Platelet Estimate Decreased
[2017-01-25 08:46] LABS: Ovalocytes FEW
[2017-01-25] MEDS: LEVOFLOXACIN 500MG 100 ML IV SCH (12:02)
[2017-01-25] MEDS: TOPIRAMATE 100 MG TAB PO SCH (12:03)
[2017-01-25] MEDS: GEMFIBROZIL 600 MG TAB PO SCH (12:03)
[2017-01-25] MEDS: PANTOPRAZOLE 40 MG TAB PO SCH (12:03)
[2017-01-25] MEDS: LOSARTAN POTASSIUM 50 MG TAB PO SCH (12:04)
[2017-01-25] MEDS: cloNIDine HCL 0.1 MG TAB PO SCH (12:06)
[2017-01-25] MEDS: CITALOPRAM HYDROBR 20 MG TAB PO SCH (12:06)
[2017-01-25] MEDS: DIGOXIN 0.25 MG TAB PO SCH (12:07)
[2017-01-25] MEDS: LEVETIRACETAM 500 MG TAB PO SCH (12:07)
[2017-01-25] MEDS: B-COMPLEX W/ C & FOLIC ACID(NEPHROVITE TAB) PO SCH (12:07)
[2017-01-25] MEDS: ESTROGEN CONJ 0.3 MG TAB PO SCH (12:08)
[2017-01-25] MEDS: OXcarbazepine 300 MG TAB PO SCH (12:09)
[2017-01-25] MEDS: MULTIPLE VITAMIN TAB PO SCH (12:27)
[2017-01-25 12:30] VITALS: BP 137/82
[2017-01-25] MEDS: ZONEGRAN 100 MG PO SCH (15:49)
[2017-01-25] MEDS ORDERED: PANT40TA2 PO (15:57)
[2017-01-25] MEDS ORDERED: POTASSIUM CHL 20 Meq TABLET PO ONE (16:00)
[2017-01-25 16:37] VITALS: BP 112/72
[2017-01-25 17:06] VITALS: BP 137/82
== END 2017-01-25 16:30 | disposition home or self-care (01) | DRG 251 ==
LOC: EDBD 03:05 → ER 03:05 → OVERFLOW 03:06 → TELE-E-ADS 16:57 → TELE-EAST 20:22 → EAST 20:23
PROVIDERS: ADMIT Internal Medicine; ATTEND Nurse Practitioner Acute Care
PROC: 0DB68ZX Excision of Stomach, Via Natural or Artificial Opening Endoscopic, Diagnostic (ICD-10-PCS; principal; 2017-01-25 10:20)
DX: R10.9 Unspecified abdominal pain (principal); D68.69 Other thrombophilia; I31.3 Pericardial effusion (noninflammatory); E44.0 Moderate protein-calorie malnutrition; A04.7 Enterocolitis due to Clostridium difficile; I48.92 Unspecified atrial flutter; J84.10 Pulmonary fibrosis, unspecified; I12.9 Hypertensive chronic kidney disease with stage 1 through stage 4 chronic kidney disease, or unspecified chronic kidney disease; I48.0 Paroxysmal atrial fibrillation; E86.0 Dehydration; F41.9 Anxiety disorder, unspecified; M10.9 Gout, unspecified; E78.5 Hyperlipidemia, unspecified; N18.2 Chronic kidney disease, stage 2 (mild); E87.6 Hypokalemia; E03.9 Hypothyroidism, unspecified; F32.9 Major depressive disorder, single episode, unspecified; N39.0 Urinary tract infection, site not specified; G25.81 Restless legs syndrome; G40.909 Epilepsy, unspecified, not intractable, without status epilepticus; G47.00 Insomnia, unspecified; N21.0 Calculus in bladder; Z79.899 Other long term (current) drug therapy; Z82.0 Family history of epilepsy and other diseases of the nervous system; Z82.5 Family history of asthma and other chronic lower respiratory diseases; Z82.49 Family history of ischemic heart disease and other diseases of the circulatory system; Z83.3 Family history of diabetes mellitus; Z82.3 Family history of stroke; Z90.49 Acquired absence of other specified parts of digestive tract; Z98.84 Bariatric surgery status; Z86.19 Personal history of other infectious and parasitic diseases; Z90.710 Acquired absence of both cervix and uterus; Z80.9 Family history of malignant neoplasm, unspecified; Z84.89 Family history of other specified conditions; Z88.1 Allergy status to other antibiotic agents; Z88.8 Allergy status to other drugs, medicaments and biological substances; Z68.26 Body mass index [BMI] 26.0-26.9, adult
CPT/HCPCS: 36415; 43239; 71010; 74176; 78226; 80048; 80053; 81001; 82150; 82270; 83690; 83735; 84484; 85025; 85048; 85610; 85730; 87040; 87045; 87081; 87086; 87493; 87899; 93005; 93306; 96361; 96365; 96375; 96376; J1956; J2250; J2405; J3490

== ENCOUNTER 2017-08-19 20:13 | Inpatient (IN) | payer MEDICAID ==
[~2017-08-19] VITALS: Ht 165.1 cm; Wt 64.8 kg
[~2017-08-19 20:13] MED LIST changes: -BISA-51 OR; -BUTACAP35 PO; -CHL4PW GT; +CLO01T PO; -CLON0.2T PO; -COZAR PO; -CYA100I PO; -DIAZ10GE; +DIAZ10GE RE; -FLUV80TA PO; -HYDR-4663 PO; +LINA145C OR; -NITR-48 PO; -NITR0.4S29 SL; -OMEP20CA74 PO; +ONDA-133 PO; -ONDA8TAB9 PO; +PANT40TA2 PO; +POTA1TAB4 PO; +[UNRECOGNIZED DRUG - CODE] PO
[2017-08-19 21:24] LABS: Hemoglobin 10.6 g/dL (12.2-16.2)
[2017-08-19 21:26] LABS: Hematocrit 32.6 % (36.0-46.0); Mean Corpuscular Hemoglobin 26.2 pg (28.0-32.0); Mean Corpuscular Hgb Conc. 32.5 g/dL (32.0-36.0); Mean Corpuscular Volume 80.5 fL (80.0-100.0); Platelet Count (auto) 215 10^3/uL (140-450); Red Blood Cells 4.05 10^6/uL (4.0-5.20); White Blood Cell 5.9 10^3/uL (4.4-10.8)
[2017-08-19 21:31] LABS: Red Cell Distribution Width 23.9 % (11.8-14.3)
[2017-08-19 21:32] LABS: Band Neutrophils % (manual) 0; Basophils % (manual) 0 (0.0-2.0); Blast Cells 0; Metamyelocytes % 0; Myelocytes % 0; Promyelocytes % 0; Reactive Lymphocytes 0
[2017-08-19 21:42] LABS: Alanine Aminotransferase 10 U/L (13-56); Anion Gap 12 (5-15); Aspartate Aminotransferase 17 U/L (15-37); BUN/Creatinine Ratio 17.7; Blood Urea Nitrogen 11 mg/dL (7-18); Calcium 8.4 mg/dL (8.5-10.1); Carbon Dioxide 17 mmol/L (21-32); Chloride 110 mmol/L (98-107); GFR African American 126 mL/min; GFR Non-African American 104 mL/min; Glucose 93 mg/dL (74-106); Magnesium 2.2 mg/dL (1.6-2.6); Potassium 3.3 mmol/L (3.5-5.1); Sodium 139 mmol/L (136-145)
[2017-08-19 21:48] LABS: Alkaline Phosphatase 115 U/L (45-117); Bilirubin, Total 0.5 mg/dL (0.2-1.0); Total Protein 6.7 g/dL (6.4-8.2)
[2017-08-19 22:14] LABS: Eosinophils % (manual) 1 (0-7); Lymphocytes % (manual) 35 (10.0-50.0); Monocytes % (manual) 7 (0-12)
[2017-08-20] MEDS ORDERED: MORPHINE SULFATE 4 MG/ML SYR/VIAL IV ONE (00:45)
[2017-08-20] MEDS ORDERED: ONDANSETRON HCL 4 MG/2 ML VIAL IV ONE ×2 (00:45→04:30)
[2017-08-20 01:32] LABS: Amylase 31 U/L (25-115); Lipase 346 U/L (73-393)
[2017-08-20] MEDS ORDERED: cefTRIAXone 1GM/10ml IVPUSH 10 ML IV ONE (03:45)
[2017-08-20] MEDS ORDERED: HYDROmorphone HCL 2 MG/ML VL IV ONE (04:30)
[2017-08-20] MEDS ORDERED: VANCOMYCIN 1GM/250ML 250 ML IV ONE (04:45)
[2017-08-20] MEDS: SODIUM CHLORIDE 0.9% 1,000 ML IV SCH (08:55)
[2017-08-20] MEDS ORDERED: LORazepam 2MG/ML-1ML VIAL IV PRN (09:00)
[2017-08-20] MEDS ORDERED: ACETAMINOPHEN 325 MG TAB PO PRN (09:00)
[2017-08-20] MEDS ORDERED: POTASSIUM CHLORIDE 8 MEQ TAB PO ONE (09:00)
[2017-08-20] MEDS ORDERED: TEMAZEPAM 15 MG CAP PO PRN (09:00)
[2017-08-20] MEDS ORDERED: HYDROcodone-ACET 5/325MG TAB PO PRN (09:00)
[2017-08-20] MEDS ORDERED: LEVOFLOXACIN 500MG 100 ML IV ONE (09:15)
[2017-08-20] MEDS ORDERED: cloNIDine HCL 0.1 MG TAB PO PRN (09:15)
[2017-08-20] MEDS ORDERED: MECLIZINE HCL 25 MG TAB PO PRN (09:15)
[2017-08-20] MEDS ORDERED: SUMAtriptan SUCCINATE 25 MG TAB PO PRN (09:15)
[2017-08-20] MEDS: CYANOCOBALAMIN 500 MCG TAB PO SCH (10:00)
[2017-08-20] MEDS: LEVETIRACETAM 500 MG TAB PO SCH ×2 (10:00→21:21)
[2017-08-20] MEDS: TOPIRAMATE 100 MG TAB PO SCH ×2 (10:00→21:21)
[2017-08-20] MEDS: ASCORBIC ACID 500 MG TAB PO SCH ×2 (10:00→21:21)
[2017-08-20] MEDS: LEVOFLOXACIN 500MG 100 ML IV SCH (10:00)
[2017-08-20] MEDS: cloNIDine HCL 0.1 MG TAB PO SCH ×2 (10:00→22:00)
[2017-08-20] MEDS: ZINC SULFATE 220 MG CAP PO SCH (10:00)
[2017-08-20] MEDS: PANTOPRAZOLE 40 MG TAB PO SCH (10:00)
[2017-08-20] MEDS ORDERED: FAMOTIDINE 20 MG TAB PO SCH (10:00)
[2017-08-20] MEDS: POTASSIUM CHL 20 Meq TABLET PO SCH (10:00)
[2017-08-20] MEDS: ESTRADIOL 1 MG TAB PO SCH (10:00)
[2017-08-20] MEDS: GEMFIBROZIL 600 MG TAB PO SCH ×2 (10:00→21:30)
[2017-08-20] MEDS: OXcarbazepine 300 MG TAB PO SCH ×2 (10:00→21:21)
[2017-08-20] MEDS: DIGOXIN 0.125 MG TAB PO SCH (10:00)
[2017-08-20] MEDS: MULTIPLE VITAMIN TAB PO SCH (10:00)
[2017-08-20] MEDS: FUROSEMIDE 20 MG TAB PO SCH (10:00)
[2017-08-20 10:28] LABS: INR 1.05 (0.9-1.15); Prothrombin Time 11.4 sec (9.37-12.3)
[2017-08-20] MEDS: BOOST PLUS 8 ounce PO SCH ×2 (11:43→18:18)
[2017-08-20] MEDS: MORPHINE SULFATE 4 MG/ML SYR/VIAL IV PRN ×3 (11:53→20:47)
[2017-08-20] MEDS: ONDANSETRON HCL 4 MG/2 ML VIAL IV PRN ×3 (11:53→21:22)
[2017-08-20] MEDS: metroNIDAZOLE 500MG/100ML 100 ML IV SCH ×2 (12:04→20:46)
[2017-08-20] MEDS: MIDODRINE HCL 10 MG TAB PO SCH ×2 (14:26→21:21)
[2017-08-20 14:45] VITALS: BP 112/66
[2017-08-20 16:50] VITALS: BP 112/66
[2017-08-20] MEDS ORDERED: INFLUENZA QUAD 2017-2018 0.5 ML SYRG IM ONE (18:15)
[2017-08-20] MEDS: LORazepam 0.5 MG TAB PO PRN (21:22)
[2017-08-20 22:03] VITALS: BP 116/70
[2017-08-21] MEDS: ONDANSETRON HCL 4 MG/2 ML VIAL IV PRN ×4 (03:29→19:51)
[2017-08-21] MEDS: MORPHINE SULFATE 4 MG/ML SYR/VIAL IV PRN ×4 (03:29→19:51)
[2017-08-21] MEDS: SODIUM CHLORIDE 0.9% 1,000 ML IV SCH (03:30)
[2017-08-21] MEDS: metroNIDAZOLE 500MG/100ML 100 ML IV SCH (04:24)
[2017-08-21 05:38] VITALS: BP 114/66
[2017-08-21] MEDS: MIDODRINE HCL 10 MG TAB PO SCH ×3 (06:35→18:34)
[2017-08-21 07:28] LABS: Basophils # (auto) 0.1 uL; Eosinophils # (auto) 0 uL; Monocytes # (auto) 0.8 uL; Neutrophils # (auto) 2.5 uL
[2017-08-21 07:44] LABS: Urine Bacteria FEW /hpf (None Seen); Urine Blood TRACE /uL (Negative); Urine Specific Gravity 1.006 (1.001-1.035); Urine WBC 4 /hpf (0 - 5)
[2017-08-21 07:52] LABS: Basophils % (auto) 1.6 % (0.0-2.0); Eosinophils % (auto) 0.9 % (0.0-7.0); Hematocrit 29.8 % (36.0-46.0); Hemoglobin 9.7 g/dL (12.2-16.2); Mean Corpuscular Hemoglobin 26.1 pg (28.0-32.0); Mean Corpuscular Hgb Conc. 32.4 g/dL (32.0-36.0); Mean Corpuscular Volume 80.4 fL (80.0-100.0); Monocytes % (auto) 17.5 % (0.0-12.0); Nucleated Red Blood Cells % 0.3 %; Platelet Count (auto) 170 10^3/uL (140-450); Red Blood Cells 3.71 10^6/uL (4.0-5.20); White Blood Cell 4.4 10^3/uL (4.4-10.8)
[2017-08-21 07:54] LABS: Red Cell Distribution Width 24.1 % (11.8-14.3)
[2017-08-21 08:00] VITALS: BP 112/66
[2017-08-21] MEDS: BOOST PLUS 8 ounce PO SCH ×3 (08:00→18:00)
[2017-08-21 08:23] LABS: Albumin 2.7 g/dL (3.4-5.0); BUN/Creatinine Ratio 14.8; Bilirubin, Total 0.3 mg/dL (0.2-1.0); Calcium 8.2 mg/dL (8.5-10.1); Potassium 3.7 mmol/L (3.5-5.1); Total Protein 6.3 g/dL (6.4-8.2)
[2017-08-21] MEDS: cloNIDine HCL 0.1 MG TAB PO SCH ×2 (10:00→21:59)
[2017-08-21] MEDS: LEVOFLOXACIN 500MG 100 ML IV SCH (10:31)
[2017-08-21] MEDS: OXcarbazepine 300 MG TAB PO SCH ×2 (10:31→21:31)
[2017-08-21] MEDS: ESTRADIOL 1 MG TAB PO SCH (10:32)
[2017-08-21] MEDS: TOPIRAMATE 100 MG TAB PO SCH ×2 (10:32→21:59)
[2017-08-21] MEDS: LEVETIRACETAM 500 MG TAB PO SCH ×2 (10:32→21:31)
[2017-08-21] MEDS: MULTIPLE VITAMIN TAB PO SCH (10:32)
[2017-08-21] MEDS: PANTOPRAZOLE 40 MG TAB PO SCH (10:32)
[2017-08-21] MEDS: POTASSIUM CHL 20 Meq TABLET PO SCH (10:32)
[2017-08-21] MEDS: ZINC SULFATE 220 MG CAP PO SCH (10:32)
[2017-08-21] MEDS: DIGOXIN 0.125 MG TAB PO SCH (10:33)
[2017-08-21] MEDS: ASCORBIC ACID 500 MG TAB PO SCH ×2 (10:33→21:31)
[2017-08-21] MEDS: GEMFIBROZIL 600 MG TAB PO SCH ×2 (10:33→21:31)
[2017-08-21] MEDS: CYANOCOBALAMIN 500 MCG TAB PO SCH (10:33)
[2017-08-21] MEDS: FUROSEMIDE 20 MG TAB PO SCH (10:34)
[2017-08-21 12:38] VITALS: BP 112/67
[2017-08-21 13:48] LABS: Hemoglobin 9.3 g/dL (12.2-16.2)
[2017-08-21] MEDS ORDERED: GOLYTELY 4L KIT PO ONE (14:15)
[2017-08-21 16:44] VITALS: BP 126/69
[2017-08-21] MEDS: LORazepam 0.5 MG TAB PO PRN (21:31)
[2017-08-21 22:00] VITALS: BP 131/74
[2017-08-22] MEDS: ONDANSETRON HCL 4 MG/2 ML VIAL IV PRN ×4 (00:38→15:18)
[2017-08-22] MEDS: MORPHINE SULFATE 4 MG/ML SYR/VIAL IV PRN ×4 (00:38→15:17)
[2017-08-22 05:00] VITALS: BP 127/77
[2017-08-22] MEDS: MIDODRINE HCL 10 MG TAB PO SCH ×3 (06:25→19:39)
[2017-08-22 07:25] LABS: BUN/Creatinine Ratio 14.3; Calcium 8.2 mg/dL (8.5-10.1); Potassium 3.8 mmol/L (3.5-5.1)
[2017-08-22 07:58] LABS: Basophils # (auto) 0.1 uL; Eosinophils # (auto) 0 uL; Eosinophils % (auto) 1.2 % (0.0-7.0); Hemoglobin 8.5 g/dL (12.2-16.2); Monocytes # (auto) 0.5 uL
[2017-08-22 07:59] LABS: Basophils % (auto) 2.6 % (0.0-2.0); Hematocrit 26.1 % (36.0-46.0); Lymphocytes % (auto) 26.4 % (10.0-50.0); Mean Corpuscular Hemoglobin 26.1 pg (28.0-32.0); Mean Corpuscular Hgb Conc. 32.4 g/dL (32.0-36.0); Mean Corpuscular Volume 80.6 fL (80.0-100.0); Monocytes % (auto) 12.6 % (0.0-12.0); Neutrophils # (auto) 2.3 uL; Neutrophils % (auto) 57.2 % (37.0-80.0); Platelet Count (auto) 172 10^3/uL (140-450); Red Blood Cells 3.24 10^6/uL (4.0-5.20)
[2017-08-22] MEDS: BOOST PLUS 8 ounce PO SCH ×3 (08:00→18:00)
[2017-08-22 08:24] LABS: Red Cell Distribution Width 24.8 % (11.8-14.3)
[2017-08-22] MEDS: LEVOFLOXACIN 500MG 100 ML IV SCH (08:35)
[2017-08-22 09:04] VITALS: BP 124/75
[2017-08-22] MEDS: cloNIDine HCL 0.1 MG TAB PO SCH (10:00)
[2017-08-22] MEDS ORDERED: fentaNYL CITRATE 100 MCG/2 ML VL ONE (12:28)
[2017-08-22] MEDS ORDERED: MIDAZOLAM HCL 1MG/1ML-2 ML VIAL ONE (12:28)
[2017-08-22] MEDS ORDERED: PROPOFOL 10 MG/ML 20 ML IV ONE (12:31)
[2017-08-22 13:00] VITALS: BP 118/72
[2017-08-22 13:25] VITALS: BP 117/75
[2017-08-22] MEDS ORDERED: INFLUENZA QUAD 2017-2018 0.5 ML SYRG IM ONE (14:47)
[2017-08-22] MEDS: ZINC SULFATE 220 MG CAP PO SCH (14:59)
[2017-08-22] MEDS: LEVETIRACETAM 500 MG TAB PO SCH (14:59)
[2017-08-22] MEDS: ESTRADIOL 1 MG TAB PO SCH (14:59)
[2017-08-22] MEDS: OXcarbazepine 300 MG TAB PO SCH (15:00)
[2017-08-22] MEDS: MULTIPLE VITAMIN TAB PO SCH (15:00)
[2017-08-22] MEDS: POTASSIUM CHL 20 Meq TABLET PO SCH (15:00)
[2017-08-22] MEDS: CYANOCOBALAMIN 500 MCG TAB PO SCH (15:00)
[2017-08-22] MEDS: TOPIRAMATE 100 MG TAB PO SCH (15:00)
[2017-08-22] MEDS: PANTOPRAZOLE 40 MG TAB PO SCH (15:00)
[2017-08-22] MEDS: ASCORBIC ACID 500 MG TAB PO SCH (15:00)
[2017-08-22] MEDS: GEMFIBROZIL 600 MG TAB PO SCH (15:00)
[2017-08-22] MEDS: DIGOXIN 0.125 MG TAB PO SCH (15:01)
[2017-08-22] MEDS: FUROSEMIDE 20 MG TAB PO SCH (15:01)
== END 2017-08-22 19:50 | disposition home or self-care (01) | DRG 254 ==
LOC: ER 20:13 → OVERFLOW 20:14 → EAST 08-20 14:37
PROVIDERS: ADMIT Internal Medicine; ATTEND Internal Medicine
PROC: 0DBH8ZX Excision of Cecum, Via Natural or Artificial Opening Endoscopic, Diagnostic (ICD-10-PCS; principal; 2017-08-22 12:30)
DX: K64.8 Other hemorrhoids (principal); L89.159 Pressure ulcer of sacral region, unspecified stage; N18.6 End stage renal disease; I12.0 Hypertensive chronic kidney disease with stage 5 chronic kidney disease or end stage renal disease; E44.0 Moderate protein-calorie malnutrition; I48.92 Unspecified atrial flutter; F11.20 Opioid dependence, uncomplicated; N30.00 Acute cystitis without hematuria; E83.51 Hypocalcemia; E87.6 Hypokalemia; E78.5 Hyperlipidemia, unspecified; D63.8 Anemia in other chronic diseases classified elsewhere; F32.9 Major depressive disorder, single episode, unspecified; F41.9 Anxiety disorder, unspecified; Z68.23 Body mass index [BMI] 23.0-23.9, adult; G40.909 Epilepsy, unspecified, not intractable, without status epilepticus; I25.10 Atherosclerotic heart disease of native coronary artery without angina pectoris; K21.9 Gastro-esophageal reflux disease without esophagitis; M10.9 Gout, unspecified; I48.91 Unspecified atrial fibrillation; M54.5 Low back pain; G89.29 Other chronic pain; R16.1 Splenomegaly, not elsewhere classified; I70.90 Unspecified atherosclerosis; M19.90 Unspecified osteoarthritis, unspecified site; Z82.49 Family history of ischemic heart disease and other diseases of the circulatory system; Z86.14 Personal history of Methicillin resistant Staphylococcus aureus infection; Z86.73 Personal history of transient ischemic attack (TIA), and cerebral infarction without residual deficits; Z90.49 Acquired absence of other specified parts of digestive tract; Z90.710 Acquired absence of both cervix and uterus; Z23 Encounter for immunization; Z95.0 Presence of cardiac pacemaker
CPT/HCPCS: 36415; 45380; 71045; 72125; 74176; 80048; 80053; 81001; 82150; 82270; 83690; 83735; 84484; 85007; 85014; 85018; 85025; 85027; 85610; 87045; 87081; 87086; 87493; 87899; 93005; 96365; 96366; 96375; 96376; J1956; J2250; J2405; J2704; J3490